=== PATIENT | male | born 1965 | race Caucasian/White ===

== ENCOUNTER 2019-07-20 13:32 | Inpatient (IN) | payer BC ==
[~2019-07-20] VITALS: Ht 180.3 cm; Wt 80.4 kg
--- OUTSIDE RECORDS SUMMARY | 2019-07-20 13:36 | XMS REPORT ---
Author Organization Unknown Address [address] [place] [address] Phone [phone] Care Team Providers Care Field Reimbursement Manager Name Role Phone ROBERT VILLA MD 82 [phone] Allergies Code Code System Name Reaction Severity Status Onset NKDA Medications Name Status Start Date Stop Date albuterol sulfate 2.5 mg/3 mL (0.083 %) solution for nebulization Inhale 3 mL every 4-6 hours by nebulization route as needed for 14 days. Active Not available atenolol 100 mg tablet Take 1 tablet every day by oral route for 30 days. Active Not available Levaquin 500 mg tablet Take 1 tablet every 24 hours by oral route as directed for 10 days. Active Not available lisinopril 20 mg-hydrochlorothiazide 12.5 mg tablet Take 1 tablet every day by oral route for 90 days. Active Not available prednisone 50 mg tablet Take 1 tablet every day by oral route as directed for 5 days. Active Not available ProAir HFA 90 mcg/actuation aerosol inhaler Inhale 2 puffs every 4 hours by inhalation route as needed for 14 days. Active Not available simvastatin 20 mg tablet Take 1 tablet every day by oral route for 90 days. Active Not available Problems Name Status Onset Date Source Hyperlipidemia Active 09/30/2017 Hypertensive Disorder Active 09/30/2017 Procedures Date Name Performed by Other Information not available Lab Results None recorded. Past Encounters 09/30/2017 Acute Bronchitis; Body Mass Index 25-29 - Overweight Jason Colon MD: [id number] [place] [address], Ph. Social History Smoking Status Heavy Tobacco Smoker (1 PPD) Vaccine List Notes: none Plan of Care Reminders Provider Appointments None recorded. Lab None recorded. Referral None recorded. Procedures None recorded. Surgeries None recorded. Imaging None recorded. Vitals Height Weight BMI Blood Pressure 5 ft 8.9 in 195 lbs 28.9 kg/m2 140/90 mm[Hg]
--- OUTSIDE RECORDS SUMMARY | 2019-07-20 13:37 | XMS REPORT | Encounter Summary ---
Author Organization Unknown Address [address] [place] [address] Phone [phone] Care Team Providers Care Governor Assembler Hydraulic Name Role Phone Dr. Jason Hernadez 3 [phone] Jason Aguilar MD 3 [phone] Yasmani Davis MD 82 [phone] Nas Davis MD 114 [phone] Reason for Visit swelling/edema Instructions 1. Edema of lower extremity 2. Acute prostatitis urinalysis, dipstick Cipro 500 mg tablet 3. Painless rectal bleeding gastroenterology referral 4. Chronic obstructive lung disease 5. Hypertensive disorder 6. Overweight 7. Body mass index 25-29 - overweight learning about healthy weight Discussion Note: None recorded. Plan of Care Reminders Provider Appointments None recorded. Lab Urinalysis, Dipstick 07/14/2019 [email or web address] [place] [facility] Referral Gastroenterology Referral 07/14/2019 Procedures None recorded. Surgeries None recorded. Imaging None recorded. Medications Name Start Date albuterol sulfate 2.5 mg/3 mL (0.083 %) solution for nebulization Inhale 3 mL every 6 hours by nebulization route as needed. albuterol sulfate HFA 90 mcg/actuation aerosol inhaler INHALE 2 PUFFS BY MOUTH EVERY 4 HOURS FOR 14 DAYS NEEDED atenolol 100 mg tablet Take 1 tablet every day by oral route for 30 days. Cipro 500 mg tablet Take 1 tablet every 12 hours by oral route for 28 days. lisinopril 20 mg-hydrochlorothiazide 12.5 mg tablet Take 1 tablet every day by oral route for 90 days. simvastatin 20 mg tablet Take 1 tablet every day by oral route for 90 days. tizanidine 4 mg tablet Take 1 tablet every 8 hours by oral route as needed. Medications Administered None recorded. Vitals Height Weight BMI Blood Pressure 5 ft 9 in 196 lbs 28.9 kg/m2 130/75 mm[Hg] Results Lab Results Date Name Specimen Result Interpretation Description Value Range Status Address 07/14/2019 Urinalysis, Dipstick Color Color brandee [facility]: [address], [place] Color Appearance cloudy [facility] [place] [facility]: [address], [place] Color Glucose negative [facility] [place] [facility]: [address], [place] Color Bilirubin small [facility] [place] [facility]: [address], [place] Color Ketones negative [facility] [place] [facility]: [address], [place] Color Specific [place] 1.025 [facility] [place] [facility]: [address], [place] Color Blood large [facility] [place] [facility]: [address] [place] Color PH 5.5 [facility] [place] [facility]: [address], [place] Color Protein 300 [facility] [place] [facility]: [address], [place] Color Urobilinogen 0.2 [facility] [place] [facility]: [address], [place] Color Nitrites negative [facility] [place] [facility]: [address], [place] Color Leukocytes negative [facility]: [address], [place] Allergies Code Code System Name Reaction Severity Status Onset NKDA Problems Name Status Onset Date Source Hyperlipidemia Active 09/30/2017 Hypertensive Disorder Active 09/30/2017 Chronic Obstructive Lung Disease Active Procedures Date Name Performed by Other Information not available Vaccine List Vaccine Type influenza, injectable, quadrivalent 03/21/2017 Social History Tobacco Smoking Status Heavy Tobacco Smoker (1 PPD) Past Encounters 07/14/2019 Edema of Lower Extremity; Acute Prostatitis; Painless Rectal Bleeding; Chronic Obstructive Lung Disease; Hypertensive Disorder; Overweight; Body Mass Index 25- 29 - Overweight Berlin De La Cruz MD: [address], [place] [address], Ph. History of Present Illness Note:1 week with peristent swelling in arms and legs. Arms better today. No assoc pain, numbness in feet only since swelling, no assoc redness or rashes. Review of Systems Comprehensive General Adult ROS Reported By: Patient Constitutional: Constitutional: no significant weight gain Cardiovascular: Cardiovascular: no chest pain, no shortness of breath when walking, no shortness of breath when lying down, no palpitations; No paroxysmal nocturnal dyspnea Respiratory: Respiratory: no shortness of breath Genitourinary: Genitourinary: no hematuria, no increased frequency, urinary loss of control, difficulty urinating; mild dysuria Neurologic: Neurologic: no dizziness, no headaches, weakness Physical Exam General Adult Exam (male) Reported By: Patient Constitutional: Level of Distress: NAD Psychiatric: Mental Status: active and alert Eyes: Pupils: PERRLA. EOM: EOMI Neck: Neck: supple, no masses, FROM. Thyroid: no enlargement, non-tender, no nodules Lungs: Respiratory effort: no dyspnea. Auscultation: no wheezing, no rales/crackles, rhonchi Cardiovascular: Heart Auscultation: RRR, no murmurs. Neck vessels: no carotid bruits, JVD; no HJR. Pulses including femoral / pedal: diminished Abdomen: Bowel Sounds: normal. Inspection and Palpation: soft, no tenderness, no masses, no CVA tenderness. Liver: non-tender, no hepatomegaly. Spleen: non- tender, no splenomegaly Male : Penis: no lesions, no discharge, uncircumcised. Scrotum: no swelling, no tenderness. Testes: palpable bilaterally, not enlarged. Prostate: symmetrical, smooth / no nodules, enlarged, tender, boggy (fluctuant) Musculoskeletal:: Motor Strength and Tone: normal. Joints, Bones, and Muscles: tenderness. Extremities: no cyanosis, edema, palpable cord Neurologic: Cranial Nerves: grossly intact. Sensation: grossly intact
--- OUTSIDE RECORDS SUMMARY | 2019-07-20 13:37 | XMS REPORT | Encounter Summary ---
Author Organization Unknown Address [address] [place] [address] Phone [phone] Care Team Providers Care Acrobatic Dancer Name Role Phone Dr. Jason Hernadez 3 [phone] Jason Aguilar MD 3 [phone] Yasmani Davis MD 82 [phone] Nas Davis MD 114 [phone] Reason for Visit fever; cough / congestion; diarrhea; body aches Instructions 1. Acute bronchitis Depo-Medrol 80 mg/mL suspension for injection ceftriaxone 1 gram solution for injection ciprofloxacin 500 mg tablet Medrol (Tai) 4 mg tablets in a dose pack ProAir HFA 90 mcg/actuation aerosol inhaler Tessalon Perles 100 mg capsule albuterol sulfate 2.5 mg/3 mL (0.083 %) solution for nebulization 2. Body mass index 25-29 - overweight learning about healthy weight 3. Screening for malignant neoplasm of colon colonoscopy referral 4. Vaccine refused by patient 5. Chronic obstructive lung disease Discussion Note: None recorded. Plan of Care Reminders Provider Appointments None recorded. Lab None recorded. Referral Colonoscopy Referral 04/11/2019 Albert Nieto MD Procedures None recorded. Surgeries None recorded. Imaging None recorded. Medications Name Start Date albuterol sulfate 2.5 mg/3 mL (0.083 %) solution for nebulization Inhale 3 mL as needed by nebulization route as needed. atenolol 100 mg tablet Take 1 tablet every day by oral route for 30 days. ceftriaxone 1 gram solution for injection Take 1 g by injection route. ciprofloxacin 500 mg tablet Take 1 tablet every 12 hours by oral route as directed for 10 days. Depo-Medrol 80 mg/mL suspension for injection Take 80 mg by injection route. lisinopril 20 mg-hydrochlorothiazide 12.5 mg tablet Take 1 tablet every day by oral route for 90 days. Medrol (Tai) 4 mg tablets in a dose pack Take 1 dose pk by oral route as directed. ProAir HFA 90 mcg/actuation aerosol inhaler INHALE 2 PUFFS BY MOUTH EVERY 4 HOURS FOR 14 DAYS NEEDED simvastatin 20 mg tablet Take 1 tablet every day by oral route for 90 days. Tessalon Perles 100 mg capsule Take 1 capsule 3 times a day by oral route as needed for 10 days. triamcinolone acetonide 0.5 % topical ointment APPLY A THIN LAYER TO THE AFFECTED AREA(S) BY TOPICAL ROUTE 2 TIMES PER DAY FOR UP TO 2 WEEKS Medications Administered Name Date Depo-Medrol 80 mg/mL suspension for injection Take 80 mg by injection route. 8156-83-82S98:39:00 ceftriaxone 1 gram solution for injection Take 1 g by injection route. 8596-63-98L84:37:00 albuterol sulfate 2.5 mg/3 mL (0.083 %) solution for nebulization Inhale 3 mL as needed by nebulization route as needed. [id number]:40:00 Vitals Height Weight BMI Blood Pressure 5 ft 9 in 194 lbs 28.6 kg/m2 (1) 154/100 mm[Hg] (2) 150/94 mm[Hg] Results Lab Results None recorded. Allergies Code Code System Name Reaction Severity Status Onset NKDA Problems Name Status Onset Date Source Hyperlipidemia Active 09/30/2017 Hypertensive Disorder Active 09/30/2017 Chronic Obstructive Lung Disease Active Procedures Date Name Performed by Other Information not available Vaccine List Vaccine Type influenza, injectable, quadrivalent 03/21/2017 Social History Tobacco Smoking Status Heavy Tobacco Smoker (1/2 PPD) Past Encounters 04/11/2019 Acute Bronchitis; Body Mass Index 25-29 - Overweight; Screening for Malignant Neoplasm of Colon; Vaccine Refused by Patient; Chronic Obstructive Lung Disease Jason Colon MD: [address] [place] [address], Ph. History of Present Illness Note:Pt is complaining of runny nose,nasal congestion, productive cough, wheezing, watery stools and fever not quantified since 2 weeks ago. Denies sore throat, abdominal pain, nausea, sob or chest pain Review of Systems:ROS as noted in the HPI Review of Systems None recorded. Physical Exam General Adult Exam (male) Reported By: Patient Constitutional: General Appearance: overweight. Level of Distress: NAD. Ambulation: ambulating normally Psychiatric: Insight: good judgement. Mental Status: active and alert, normal mood, normal affect. Orientation: to time, to place, to person Eyes: Lids and Conjunctivae: non-injected, no discharge ENMT: Ears: TMs clear. Nose: nasal passages clear, no sinus tenderness, nares non- patent, nasal discharge, post nasal drip. Lips, Teeth, and Gums: no mouth or lip ulcers. Oropharynx: moist mucous membranes, no exudates, erythema Neck: Neck: supple. Lymph Nodes: cervical LAD Lungs: Respiratory effort: no dyspnea. Auscultation: expiratory wheezing, rhonchi Cardiovascular: Heart Auscultation: RRR, normal S1, normal S2, no murmurs Musculoskeletal:: Motor Strength and Tone: normal, normal tone. Extremities: no edema Neurologic: Gait and Station: normal gait
--- OUTSIDE RECORDS SUMMARY | 2019-07-20 13:37 | XMS REPORT | Encounter Summary ---
Author Organization Unknown Address [address] [place] [address] Phone [phone] Care Team Providers Care Audio Video Repairer Name Role Phone Dr. Jason Hernadez 3 [phone] Jason Aguilar MD 3 [phone] Yasmani Davis MD 82 [phone] Nas Davis MD 114 [phone] Reason for Visit congestion; fever Instructions 1. Acute exacerbation of chronic obstructive airways disease Mucinex DM 30 mg-600 mg tablet,extended release 12 hr Tussionex Pennkinetic ER 10 mg-8 mg/5 mL suspension,extended release Depo-Medrol 80 mg/mL suspension for injection Zithromax Z-Tai 250 mg tablet XR, chest, 2 view albuterol sulfate 2.5 mg/3 mL (0.083 %) solution for nebulization 2. Cervical radiculopathy Zanaflex 4 mg tablet Medrol (Tai) 4 mg tablets in a dose pack 3. Upper respiratory infection 4. Pharyngitis 5. Headache 6. Fatigue 7. Chest pain 8. Hypertensive disorder 9. Neck pain 10. Nicotine dependence with current use Discussion Note: None recorded. Patient educational handouts: No information available. Plan of Care Reminders Provider Appointments None recorded. Lab None recorded. Referral None recorded. Procedures None recorded. Surgeries None recorded. Imaging XR, Chest, 2 View 06/08/2019 [facility] Radiology [place] Medications Name Start Date albuterol sulfate 2.5 mg/3 mL (0.083 %) solution for nebulization Inhale 3 mL as needed by nebulization route as needed. albuterol sulfate HFA 90 mcg/actuation aerosol inhaler INHALE 2 PUFFS BY MOUTH EVERY 4 HOURS FOR 14 DAYS NEEDED atenolol 100 mg tablet Take 1 tablet every day by oral route for 30 days. Depo-Medrol 80 mg/mL suspension for injection Take 40 mg by injection route. lisinopril 20 mg-hydrochlorothiazide 12.5 mg tablet Take 1 tablet every day by oral route for 90 days. Medrol (Tai) 4 mg tablets in a dose pack Take 1 dose pk by oral route as directed. Mucinex DM 30 mg-600 mg tablet,extended release 12 hr Take 1 tablet every 12 hours by oral route as needed. simvastatin 20 mg tablet Take 1 tablet every day by oral route for 90 days. Tussionex Pennkinetic ER 10 mg-8 mg/5 mL suspension,extended release Take 5 mL every 12 hours by oral route. Zanaflex 4 mg tablet Take 1 tablet every 8 hours by oral route as needed. Zithromax Z-Tai 250 mg tablet TAKE 2 TABLETS (500 MG) BY ORAL ROUTE ONCE DAILY FOR 1 DAY THEN 1 TABLET (250 MG) BY ORAL ROUTE ONCE DAILY FOR 4 DAYS Medications Administered Name Date Depo-Medrol 80 mg/mL suspension for injection Take 40 mg by injection route. [id number]:42:00 Vitals Height Weight BMI Blood Pressure 5 ft 9 in 186.8 lbs 27.6 kg/m2 (1) 161/100 mm[Hg] (2) 157/94 mm[Hg] Results Lab Results None recorded. Allergies Code Code System Name Reaction Severity Status Onset NKDA Problems Name Status Onset Date Source Hyperlipidemia Active 09/30/2017 Hypertensive Disorder Active 09/30/2017 Chronic Obstructive Lung Disease Active Procedures Date Name Performed by Other Information not available 06/08/2019 XR, Chest, 2 [facility] Radiology [place] [address] [place], [place] [id number] (Work Place) Vaccine List Vaccine Type influenza, injectable, quadrivalent 03/21/2017 Social History Tobacco Smoking Status Heavy Tobacco Smoker (1 PPD) Past Encounters 06/08/2019 Acute Exacerbation of Chronic Obstructive Airways Disease; Cervical Radiculopathy; Upper Respiratory Infection; Pharyngitis; Headache; Fatigue; Chest Pain; Hypertensive Disorder; Neck Pain; Nicotine Dependence with Current Use Berlin De La Cruz MD: [address], [place] [address], Ph. History of Present Illness Cough Reported By: Patient HPI: Quality: ; chest congestion with clear white and yellow phlegm. Duration: ; 4 weeks. Context: smoker. Modifying Factors: ; nothing tried. Associated Symptoms: fever, chills, chest pain, wheezing; SOB with cough and movement, nasal and sinus congestion, clear RN and PN, no ST or EA, Occ pounding SESAY, energy and appetite decreased Note:Sees Cards for HTN. Denies CAD/VA or arrhythmia Review of Systems Comprehensive General Adult ROS Reported By: Patient Cardiovascular: Cardiovascular: no arm pain on exertion, shortness of breath when walking, shortness of breath when lying down; Paroxysmal nocturnal dyspnea - old and unchanged Musculoskeletal: Musculoskeletal: muscle weakness; left posterior neck pain for 2 weeks Neurologic: Neurologic: numbness Physical Exam Upper Respiratory Infection Exam Comprehensive Reported By: Patient Constitutional: General Appearance ill-appearing Head: Sinuses no tenderness Eyes: Pupils injection of the conjunctiva Ears: Right External auditory canal normal appearance. Left External auditory canal normal appearance. Right Tympanic membrane pearly paulino, landmarks clear. Left Tympanic membrane: pearly paulino, landmarks clear Nose: Nasal Mucosa hypertrophy, irritated mucosa Oral Cavity/Mouth: Oral Mucosa: normal. Tonsils: normal tonsils. Posterior pharynx: erythema Lymph Nodes: Cervical no posterior cervical adenopathy, no anterior cervical adenopathy Lungs: Respiratory effort unlabored. Auscultation no rales / crackles, no rhonchi, decreased breath sounds,diffusely, wheezing expiratory diffusely, wheezing inspiratory diffusely Cardiovascular System: Auscultation regular rate and rhythm, no murmur; no JVD. Observation/Palpation of peripheral vascular system no edema
[2019-07-20 15:00] VITALS: BP 94/64
--- NOTE | 2019-07-20 15:00 | NUR ---
PATIENT IS A DIRECT ADMIT. ARRIVED TO THE FLOOR VIA WHEEL CHAIR. ALERT AND VERBALLY RESPONSIVE. SKIN WARM AND DRY TO TOUCH, RESPIRATION EVEN AND UNLABORED. ABDOMEN SOFT, LARGE AND ROUND WITH POSITIVE BS X 4 QUADS. DENIED PAIN AT THIS TIME. TELEMETRY BOX APPLIED. ORIENTED TO SURROUNDING. BED IN LOWER POSITION, CALL LIGHT AT REACH, INSTRUCTED TO CALL FOR ASSISTANCE NEEDED. DR WELLS TAX PREPARER AT BED SIDE AT THIS TIME.
[2019-07-20 15:25] VITALS: BP 94/64
[2019-07-20] MEDS ORDERED: ONDANSETRON HCL INJ 2MG/ML 2ML 2 MG/ML VIAL IV PRN ×2 (16:00→19:30)
--- NOTE | 2019-07-20 16:05 | NUR ---
PATIENT NOTED WITH B/P OF 94/64 AND A HR OF 47. PATIENT HAS AN ORDER FOR LASIX 60MG IV. MD NOTIFIED, ORDER RECEIVED TO GIVE LASIX ORDERED.
[2019-07-20 16:08] LABS: BASOPHILS # (AUTO) 0.1 (0.0-0.1); EOSINOPHILS # (AUTO) 0.3 (0.0-0.4); EOSINOPHILS % 2.7 % (0.0-6.0); HEMATOCRIT 29.2 % (38.2-49.6); HEMOGLOBIN 8.8 g/dL (14.0-18.0); LYMPHOCYTES # (AUTO) 1.5 (1.0-3.2); LYMPHOCYTES % 14.1 % (18.0-39.1); MEAN CORPUSCULAR HEMOGLOBIN 28.3 pg (28-32); MEAN CORPUSCULAR HGB CONC 30.1 g/dL (31-35); MEAN CORPUSCULAR VOLUME 93.9 fL (81-99); MONOCYTES # (AUTO) 0.6 (0.2-0.8); MONOCYTES % 5.9 % (4.4-11.3); NEUTROPHILS # (AUTO) 7.8 (2.1-6.9); NEUTROPHILS % 74.1 % (38.7-80.0); PLATELET COUNT 189 x10e3/uL (140-360); RED BLOOD COUNT 3.11 x10e6/uL (4.3-5.7); RED CELL DISTRIBUTION WIDTH 14.7 % (11.7-14.4)
[2019-07-20] MEDS: FUROSEMIDE INJ 10 MG/ML 4 ML VIAL IV SCH ×2 (16:10→21:21)
[2019-07-20 16:29] LABS: ALBUMIN 2.4 g/dL (3.5-5.0); ALBUMIN/GLOBULIN RATIO 0.7 (0.8-2.0); ANION GAP 26.2 mmol/L (8-16); CALCIUM 7.4 mg/dL (8.4-10.2); CHOL/HDL RATIO 4.8 (3.9-4.7); CREATININE, SERUM 12.5 mg/dL (0.72-1.25); MAGNESIUM 2.9 MG/DL (1.3-2.1); PHOSPHORUS 20.2 MG/DL (2.3-4.7); POTASSIUM 5.2 mmol/L (3.5-5.1)
[2019-07-20 16:40] LABS: B-TYPE NATRIURETIC PEPTIDE2 2730.6 pg/mL (0-100)
[2019-07-20 16:50] LABS: THYROID STIMULATING HORMONE 2.497 uIU/mL (0.350-4.940)
[2019-07-20] MEDS: FAMOTIDINE 20 MG TAB PO SCH (17:00)
[2019-07-20] MEDS ORDERED: POTASSIUM CHLORIDE 20 MEQ TAB CR PO SCH (17:00)
--- NOTE | 2019-07-20 17:28 | NUR ---
PATIENT OFF UNIT TO RADIOLOGY.
--- NOTE | 2019-07-20 17:55 | Diagnostic Imaging Report ---
EXAMINATION: CHEST 2 VIEWS INDICATION: Diastolic heart failure COMPARISON: None FINDINGS: LINES/TUBES:EKG leads overlie the chest. LUNGS:The lungs are hyperinflated. Bilateral emphysematous changes. There is left basilar opacity silhouetting the left vaughn diaphragm. PLEURA:Trace left pleural effusion. MEDIASTINUM:Cardiomegaly. Atherosclerotic calcifications of the thoracic aorta. BONES/SOFT TISSUES:No acute osseous injury. ABDOMEN:No free air under the diaphragm. IMPRESSION: Hyperinflated lungs with emphysematous changes. Cardiomegaly. Trace left pleural effusion. Left basilar opacity, more likely subsegmental atelectasis than superimposed aspiration or pneumonia. Signed by: Jus Rivera MD on 07/20/2019 5:52 PM
--- NOTE | 2019-07-20 19:15 | NUR ---
patient received sleeping but easily awakened. no c/o pain noted. respirations even and unlabored. 02/2l/nc in use. pm assessment complete. son noted at the bedside. plan of care reviewed with son. son verbalizes understanding of this. call davidson placed within patients reach and bed alarm remains on for safety.
[2019-07-20] MEDS ORDERED: HYDRALAZINE HCL 20 MG/ML VIAL IV PRN (19:30)
[2019-07-20] MEDS ORDERED: ACETAMINOPHEN 325 MG TAB PO PRN (19:30)
[2019-07-20 19:59] VITALS: BP 115/53
[2019-07-20 20:00] VITALS: BP 115/53
[2019-07-20] MEDS ORDERED: HYDROCHLOROTH12.5 MG PO (21:10)
[2019-07-20] MEDS ORDERED: SIMVASTATIN20 MG PO (21:10)
[2019-07-20] MEDS ORDERED: ATENOLOL50 MG PO (21:10)
[2019-07-20] MEDS ORDERED: LISINOPRIL10 MG PO (21:34)
[2019-07-21] VITALS (8 sets, daily range): BP systolic 86–152; BP diastolic 47–101
[2019-07-21] MEDS: ALBUTEROL/IPRATROPIUM 3 ML NEB NEB SCH ×4 (01:46→19:45)
--- NOTE | 2019-07-21 02:40 | NUR ---
AM labs drawn at this time.
[2019-07-21 02:45] LABS: BASOPHILS # (AUTO) 0.1 (0.0-0.1); BASOPHILS % 1.1 % (0.0-1.0); EOSINOPHILS # (AUTO) 0.4 (0.0-0.4); EOSINOPHILS % 4.2 % (0.0-6.0); HEMATOCRIT 27.1 % (38.2-49.6); HEMOGLOBIN 8.5 g/dL (14.0-18.0); LYMPHOCYTES # (AUTO) 1.7 (1.0-3.2); LYMPHOCYTES % 16.9 % (18.0-39.1); MEAN CORPUSCULAR HEMOGLOBIN 29.1 pg (28-32); MEAN CORPUSCULAR HGB CONC 31.4 g/dL (31-35); MEAN CORPUSCULAR VOLUME 92.8 fL (81-99); MONOCYTES # (AUTO) 0.7 (0.2-0.8); MONOCYTES % 6.7 % (4.4-11.3); NEUTROPHILS # (AUTO) 7.1 (2.1-6.9); NEUTROPHILS % 69.3 % (38.7-80.0); PLATELET COUNT 168 x10e3/uL (140-360); RED BLOOD COUNT 2.92 x10e6/uL (4.3-5.7); RED CELL DISTRIBUTION WIDTH 14.8 % (11.7-14.4)
[2019-07-21 03:12] LABS: ANION GAP 27.2 mmol/L (8-16); CREATININE, SERUM 12.3 mg/dL (0.72-1.25)
[2019-07-21 03:18] LABS: POTASSIUM 6.2 mmol/L (3.5-5.1)
--- NOTE | 2019-07-21 04:00 | NUR ---
K+ 6.2 DAKOTAH Dawkins notified at this time. no orders received. she instructed me to call renal on consult.
--- NOTE | 2019-07-21 04:07 | NUR ---
attempted to call Dr. Thomas re: K+ 6.2 message left at this time. awaiting return call.
[2019-07-21] MEDS ORDERED: DEXTROSE 50% SYRINGE 50 ML IV STA (04:31)
[2019-07-21] MEDS ORDERED: SODIUM BICARBONATE 8.4% 50 ML VIAL IV STA (04:31)
--- NOTE | 2019-07-21 04:40 | NUR ---
Call received from at this time. New orders noted.
[2019-07-21] MEDS ORDERED: INSULIN REGULAR, HUMAN 100 UNIT/1 ML 3ML VIAL IV ONE (04:45)
[2019-07-21] MEDS ORDERED: SOD POLYSTYRENE SULFONATE SUSP 15 GM/60 ML BTL PO ONE (04:45)
[2019-07-21] MEDS ORDERED: CALCIUM GLUCONATE 10% INJ 4.65 MEQ in SODIUM CHLORIDE 0.9% 50ML 50 ML IV ONE (04:45)
--- NOTE | 2019-07-21 04:45 | NUR ---
bladder scanned at this time and shows 121cc of urine in bladder at this time.
--- NOTE | 2019-07-21 05:00 | NUR ---
all medications ordered this am by given.
[2019-07-21] MEDS ORDERED: SODIUM BICARBONATE 8.4% SYRING 50 ML ONE (05:10)
[2019-07-21] MEDS ORDERED: CALCIUM GLUCONATE 10% INJ 0.465 MEQ/ML VIAL ONE (05:10)
[2019-07-21] MEDS ORDERED: SODIUM CHLORIDE 0.9% 50ML 50 ML ONE (05:11)
[2019-07-21] MEDS: FUROSEMIDE INJ 10 MG/ML 4 ML VIAL IV SCH ×3 (05:25→21:49)
--- NOTE | 2019-07-21 06:00 | NUR ---
here to see patient. new orders noted. 24 hr urine collection also d/c'd per Dr. Pineda
--- NOTE | 2019-07-21 06:34 | NUR ---
[facility] dialysis notified of need for hemodialysis today. i spoke to
--- NOTE | 2019-07-21 07:20 | NUR ---
PATIENT SITTING UP IN BED RECEIVING NEB TREATMENT, NO DISTRESS NOTED. BED IN LOWER POSITION, CALL LIGHT AT REACH.
[2019-07-21] MEDS ORDERED: FAMOTIDINE 20 MG TAB PO SCH (07:30)
[2019-07-21] MEDS: FAMOTIDINE 20 MG TAB PO SCH ×2 (07:30→16:30)
[2019-07-21 07:43] LABS: INR 1.06
[2019-07-21 07:44] LABS: PARTIAL THROMBOPLASTIN TIME 43.7 seconds (23.8-35.5)
--- NOTE | 2019-07-21 08:00 | NUR ---
CALLED TO NOTIFY NURSE NEED FOR HEB B AND C SCREEN LABS TO PROCESS THE DIALYSIS REFERRAL TO [facility]
[2019-07-21] MEDS ORDERED: SODIUM CHLORIDE 0.9% 250ML 250 ML ONE (09:51)
[2019-07-21] MEDS ORDERED: LIDOCAINE HCL 1% LOCAL INJ 20 ML VIAL ONE ×2 (09:51→12:48)
--- NOTE | 2019-07-21 10:02 | NUR ---
SIGNED CHOICE FOR [facility] COPIES OF CHART, NO DIALYSIS NOTE OF YET, NEED MORE REPORTS TO [facility] TO COMPLETE PACKET TO START REFERRAL. WILL SEND WHAT I HAVE AT END OF DAY.
--- NOTE | 2019-07-21 12:13 | Consultation ---
DATE OF CONSULTATION: 07/21/2019 Renal Consultation REASON FOR CONSULTATION: Acute renal failure, hyperkalemia and metabolic acidosis. HISTORY OF PRESENT ILLNESS: A 53-year-old male with history of hypertension and congestive heart failure was admitted directly from Dr. Davis's office for 1 year of fatigue and shortness of breath. The patient is a poor historian and history is taken from him as well as medical record. 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 He became short of breath, developed swelling. He has noticed loss of appetite as well as some intermittent nausea and some confusion. The patient was admitted directly from Dr. Davis's office for congestive heart failure diastolic as well as fatigue and the patient's labs revealed acute kidney injury with metabolic acidosis. This morning the patient developed hyperkalemia and Nephrology consultation was called. The patient denies having any history of kidney disease in the past. Denies taking any eehq-wvl-[id number] medications. REVIEW OF SYSTEMS: 14-point review of systems completed. All systems negative other than mentioned in the HPI. PAST MEDICAL HISTORY: 1. Hepatitis in the past. 2. Hypertension. 3. Congestive heart failure. 4. Coronary artery disease. PAST SURGICAL HISTORY: Bilateral inguinal hernia repair. SOCIAL HISTORY: History of tobacco, history of alcohol. No IV drugs. FAMILY HISTORY: Positive for hypertension. ALLERGIES: NO KNOWN DRUG ALLERGIES. CURRENT MEDICATIONS: See list includes potassium chloride and Lasix. PHYSICAL EXAMINATION: VITAL SIGNS: Blood pressure 86/48 to 112/56, pulse 50, temperature 97, respiratory rate 18. GENERAL: No apparent distress, ill appearing. HEENT: Oropharynx clear. No scleral icterus. No peripheral edema. NECK: Supple. Elevated jugular venous pressure. CHEST: Clear to auscultation anteriorly bilaterally with decreased breath sounds at bases. CARDIOVASCULAR: Regular rhythm. No murmurs or rubs. ABDOMEN: Soft. Positive bowel sounds. No tenderness. No rebound. EXTREMITIES: 2+ pitting edema. No clubbing, no cyanosis. SKIN: Warm. IMAGING DATA: Chest x-ray, trace pleural effusions with cardiomegaly. LABORATORY DATA: White count 10.2, hemoglobin 8.5, hematocrit 27.1, platelets 168. Sodium 142, potassium 6.2, chloride 109, CO2 12, anion gap 27, BUN 120, creatinine 12.3, calcium 7. BNP 2730. Albumin 2.4. ASSESSMENT AND PLAN: 1. Acute kidney injury unclear etiology. The patient however with hyperkalemia, metabolic acidosis, volume overload, and uremia. We will get temporary dialysis catheter and do emergent dialysis this morning. Meanwhile, we will place Basilio catheter, get renal ultrasound, check urine studies and discontinue potassium chloride. 2. Hyperkalemia. We will discontinue potassium chloride as above. The patient receives medical treatment and will have emergent dialysis. 3. Volume overload. We will ultrafiltrate with dialysis. Continue current IV dose of Lasix. 4. Anemia. May have underlying chronic kidney disease as the patient has been having symptoms for approximately 1 year. We will check iron stores. Await renal ultrasound. 5. Hypertension. Blood pressure currently on the low side. Hold blood pressure medications. 6. Metabolic acidosis. We will correct with hemodialysis. MD CODIE Rocha/SAM /[id number]
--- NOTE | 2019-07-21 12:40 | Diagnostic Imaging Report ---
Renal ultrasound, 07/21/2019. History: ISABELA. Discussion: Transverse and longitudinal images of the kidneys were obtained demonstrating normal renal sizes but mildly increased cortical echogenicities. There is no evidence of hydronephrosis, mass, or renal calculus. The right kidney measures 11.4 cm and the left kidney measures 12.0 cm in length. Renal cortex measures 1.4 and 2.1 cm respectively. The urinary bladder is unremarkable. Bilateral ureteral jets are identified. Bladder volume measures 61 mL. There is no evidence of free fluid. IMPRESSION: Mildly increased renal cortical echogenicity suggestive of medical renal disease. Otherwise unremarkable exam. Signed by: Monroe Huerta on 07/21/2019 12:37 PM
[2019-07-21] MEDS ORDERED: HEPARIN SOD (PORCINE) 1000 UNIT/ML SDV ONE (12:48)
[2019-07-21] MEDS ORDERED: MIDAZOLAM HCL 2 MG/2 ML VIAL ONE (12:48)
[2019-07-21] MEDS ORDERED: FENTANYL CITRATE/PF 100MCG/2 ML INJ ONE (12:49)
--- NOTE | 2019-07-21 12:50 | NUR ---
PATIENT OFF UNIT TO RADIOLOGY.
--- NOTE | 2019-07-21 14:01 | NUR ---
PATIENT BACK TO UNIT FROM RADIOLOGY. HAD A IJ TUNNELLED CATHETER TO RIGHT UPPER CHEST. DENIED PAIN AT THIS TIME. IN BED RESTING WITH NO S/S OF DISTRESS.
[2019-07-21] MEDS ORDERED: SODIUM CHLORIDE 0.9% 1000ML 1,000 ML ONE (16:24)
--- NOTE | 2019-07-21 16:50 | Consultation ---
DATE OF CONSULTATION: 07/21/2019 Cardiology Consult HISTORY OF PRESENT ILLNESS: Mr. Pantera Tiwari is a 53-year-old male with primary history of hypertension, COPD, hyperlipidemia, admitted complaining of worsening shortness of breath and lower extremity edema. The patient also reports he fell about 1-1/2 months ago and also started to notice his lower extremity swelling and having dyspnea on exertion. The patient also reports abdominal pain, nausea, and also having chills and generalized weakness. He also reports dark-colored urine and stool. MEDICAL HISTORY: Hypertension, COPD, hyperlipidemia. SURGICAL HISTORY: Hernia repair. FAMILY HISTORY: Parents . Mom and dad of CVA. SOCIAL HISTORY: Active smoker one pack per day and alcohol use once a day, a glass of vodka. ALLERGIES: NO KNOWN ALLERGIES. MEDICATIONS: Home medications, atenolol, hydrochlorothiazide, lisinopril, and simvastatin. PHYSICAL EXAMINATION: VITAL SIGNS: Include temperature 96.1, heart rate of 54 and sinus bradycardia, respiratory rate of 19, blood pressure is 138/101, 100% on 2 L per nasal cannula. GENERAL: The patient is well developed, well nourished, in mild respiratory distress or shortness of breath. SKIN: Normal in appearance, texture, and temperature. Warm and dry. HEENT: Cranium is normocephalic, atraumatic. Pupils are equally round and reactive to light and accommodation. Sclerae nonicteric. Ears are normal. Throat is clear. Full range of motion. No thyromegaly. JVP measures about 9 cm with the patient at 45 degrees. RESPIRATORY: The patient is short of breath. LUNGS: Diminished breath sounds throughout lung melgar with rhonchi and wheezing and rales in all four lobes. CARDIOVASCULAR: S1 and S2 audible with regular rate, but bradycardic. No significant murmur. GASTROINTESTINAL: Soft, nontender, nondistended. Bowel sounds are present. EXTREMITIES: +4 edema. Pulses are weaker on the posterior tibial. NEUROLOGIC: Motor and sensory examination of the upper and lower extremities is normal. Reflexes are normal and symmetrical bilaterally. IMPRESSION AND PLAN: This is a 53-year-old with new onset bilateral lower extremity edema and dyspnea. Echocardiogram shows EF of 55% to 60%, and creatinine is 12.5 and albumin is 2.4. IMPRESSION: Nephrotic syndrome/renal. PLAN: 1. IV diuresis. 2. Renal is consulted for possible hemodialysis and 24-hour urine collection. 3. Monitor in telemetry. Monitor intake and output, electrolyte imbalance. Thank you for this consultation. We will continue to follow. Dictated by Trina Lowry NP MD JAYNA Alonzo/SAM /[id number]
--- NOTE | 2019-07-21 16:51 | Diagnostic Imaging Report ---
Tunneled dialysis catheter placement, 07/21/2019. History: Renal failure. Comparison: None available. Strategic Partner Development Manager: Dr. Huerta. Medication: 5 cc of 1% lidocaine without epinephrine. Medication: 25 mcg fentanyl IV for pain control. EBL: < 2 cc. Fluoro time: 0.4 min. Fluoroscopy dose (DAP): 6.4 cGy-cm2. Specimen: None. Technique: After informed consent and timeout procedure, the access site was prepped and draped with the standard maximal sterile barrier technique. Ultrasound images demonstrated vessel patency. Images were documented within PACS. The skin was anesthetized with lidocaine. The right internal jugular vein was accessed using a micropuncture set with ultrasound guidance. A 0.035-in. wire was advanced through the micropuncture sheath into the vein. The wire was advanced through the atrium into the IVC using fluoroscopic guidance. The right chest was further anesthetized with lidocaine to form the subcutaneous tunnel. The catheter was advanced through the tunnel. The tract was dilated. A peel-away sheath was placed. A 14.5 Amharic 19 cm catheter was placed into the vessel via the peel-away sheath, which was then removed. The catheter was secured with suture. The neck incision was closed with resorbable suture. Both ports demonstrated normal aspiration and flushing. Dressing was applied. The patient tolerated the procedure well without evidence of complication. Postprocedure image demonstrates the catheter to terminate in the superior right atrium. IMPRESSION: Successful tunneled dialysis catheter placement with ultrasound and fluoroscopic guidance guidance. Catheter is ready for immediate use. Signed by: Monroe Huerta on 07/21/2019 4:48 PM
[2019-07-21] MEDS ORDERED: MANNITOL 25% 12.5GM/50ML 100 ML ONE (17:21)
--- NOTE | 2019-07-21 17:23 | NUR ---
FAMILY MEMBER COMPLAINING THAT PATIENT.S FACE IS SWELLING. UPON ASSESSMENT REDNESS NOTED AROUND TO CATHETER, NECK AND FACE. CALL PLACE TO RADIOLOGY DEPARTMENT. RADIOLOGY STAFF STATED THAT THE MD IS IN ANOTHER PROCEDURE AND WILL COME AND SEE THE PATIENT AFTER THAT. FAMILY NOTIFIED.
[2019-07-21] MEDS ORDERED: MANNITOL 25% 12.5GM/50ML 50 ML ONE (17:33)
--- NOTE | 2019-07-21 17:48 | NUR ---
Nutrition Intervention Note RD Recommendation(s) for Physician: -Recommend to continue renal diet -Nepro daily for added nutrition Plan of Care: RD following, monitoring for tolerance and adequacy Nutrition reason for involvement: Diagnosis - CHF RD Assessment (07/21/19) Pt is a 53 year old male admitted with acute diastolic heart failure. It is also noted that pt has acute renal failure and is going to receive temporary dialysis. Mainly spoke to family members at bedside since pt was drowsy at time of visit. Pt was eating < 50% of meals for 1 month per family members. No weight loss reported and pts usual dry weight is 185 lbs per family member. Pt currently has a weight of 193 lbs. No N/V, but family member reported pt had diarrhea. Family member was interested in providing pt with nutrition supplement daily for added nutrition. Will continue to monitor. Principal Problems/Diagnoses: acute diastolic heart failure PMH: HTN, hepatitis, CHF, CAD GI: soft, nontender abdomen Skin: intact Labs: (07/21/2019) K 6.2, BUN 120, Creat 12.30, Phos 20.2, Ca 7, BNP 2730 Meds: lasix, pepcid, hydralazine Ht: 71 inches Wt: 193 lbs BMI: 26.9 kg/m2 IBW: 172 lbs Malnutrition Evaluation (07/21/2019) The patient does not meet criteria for a specified degree of malnutrition at this time. Will re-evaluate at follow-up as appropriate. Energy intake: <75% of estimated energy requirements for 1 month Weight loss: No weight loss reported Fat loss: unable to evaluate Muscle loss: unable to evaluate Supporting Evidence: Fluid accumulation: +2 pitting edema in extremities per MD note Functional Status: unable to evaluate Nutrition Prescription (Diet Order): renal diet Estimated Nutritional Needs: 9963-7838 calories/day (18-20 kcal/kg CBW) 88-132 g protein/day (1-1.5 g pro/kg CBW) Diet Adequacy: Not meeting calorie needs, Not meeting protein needs Tolerance: Tolerating PO Diet Education Needs Assessment: pt was drowsy at time of visit. Family member was interested in handouts regarding a low sodium/heart healthy diet for the patient. Provided written materials to family member. Family member stated she will read handouts provided at a later time. Encouraged her to contact RD if she has questions. Nutrition Care Level: moderate Nutrition Diagnosis: Inadequate energy intake related to decreased ability to consume sufficient energy secondary to decreased appetite as evidenced by pt eating <50% of meals for 1 month. Goal: Patient will meet 75-100% of estimated needs by follow up Progress: N/A Interventions: -mineral (K/Phos/Na) modified diet, Commercial beverage Monitoring/Evaluation: -Total energy intake, Total protein intake, Modified diet, Liquid supplement, Weight change Signed: Jenifer Gonzales RD, LD
--- NOTE | 2019-07-21 17:48 | NUR ---
MD AT BED SIDE TALKING TO FAMILY MEMBERS. NO MORE COMPLAIN VOICED.
[2019-07-21] MEDS ORDERED: HEPARIN SOD (PORCINE) 1000 UNIT/ML SDV IV PRN (18:00)
[2019-07-21] MEDS ORDERED: SODIUM CHLORIDE 0.9% 1000ML 2,000 ML IV PRN (18:00)
[2019-07-21] MEDS ORDERED: MANNITOL 25% 12.5GM/50 ML VIAL IV PRN (18:00)
--- NOTE | 2019-07-21 19:15 | NUR ---
patient received lethargic, lying quietly in bed. hemodialysis treatment continues at this time. no signs of pain/discomfort noted. /son noted at the bedside. family instructed to call for assistance when needed.
[2019-07-22] VITALS (8 sets, daily range): BP systolic 82–164; BP diastolic 47–89
--- NOTE | 2019-07-22 | NUR ---
patient appears to be resting quietly. respirations even and unlabored. vss. no acute distress noted. patient responsive to name when called. son remains at the bedside.
[2019-07-22] MEDS: ALBUTEROL/IPRATROPIUM 3 ML NEB NEB SCH ×4 (01:05→20:34)
[2019-07-22] MEDS: FUROSEMIDE INJ 10 MG/ML 4 ML VIAL IV SCH ×3 (06:00→21:09)
--- NOTE | 2019-07-22 07:20 | NUR ---
PATIENT IN BED RESTING WITH EYES CLOSED, NO DISTRESS NOTED. RIGHT UPPER CHEST DIALYSIS CATHETER INTACT. BED IN LOWER POSITION, CALL LIGHT AT REACH.
[2019-07-22 07:21] LABS: BASOPHILS # (AUTO) 0.1 (0.0-0.1); BASOPHILS % 1.5 % (0.0-1.0); EOSINOPHILS # (AUTO) 0.3 (0.0-0.4); HEMATOCRIT 25.9 % (38.2-49.6); HEMOGLOBIN 8.1 g/dL (14.0-18.0); LYMPHOCYTES # (AUTO) 1.4 (1.0-3.2); LYMPHOCYTES % 15.7 % (18.0-39.1); MEAN CORPUSCULAR HEMOGLOBIN 28.6 pg (28-32); MEAN CORPUSCULAR HGB CONC 31.3 g/dL (31-35); MEAN CORPUSCULAR VOLUME 91.5 fL (81-99); MONOCYTES # (AUTO) 0.5 (0.2-0.8); NEUTROPHILS # (AUTO) 6.3 (2.1-6.9); NEUTROPHILS % 72.3 % (38.7-80.0); PLATELET COUNT 143 x10e3/uL (140-360); RED BLOOD COUNT 2.83 x10e6/uL (4.3-5.7)
[2019-07-22] MEDS: FAMOTIDINE 20 MG TAB PO SCH ×2 (07:30→16:30)
[2019-07-22 07:38] LABS: ANION GAP 25.6 mmol/L (8-16); CALCIUM 7.4 mg/dL (8.4-10.2); CREATININE, SERUM 10.1 mg/dL (0.72-1.25); MAGNESIUM 2.5 MG/DL (1.3-2.1); PHOSPHORUS 15.9 MG/DL (2.3-4.7); POTASSIUM 4.6 mmol/L (3.5-5.1)
[2019-07-22 07:58] LABS: FERRITIN 272.77 ng/mL (21.81-274.66)
[2019-07-22] MEDS ORDERED: HEPARIN SOD (PORCINE) 1000 UNIT/ML SDV IV PRN (09:00)
--- NOTE | 2019-07-22 11:02 | NUR ---
BED SIDE HEMODIALYSIS TREATMENT IN PROGRESS, NO DISTRESS NOTED.
--- NOTE | 2019-07-22 12:31 | NUR ---
BEDSIDE HEMODIALYSIS COMPLETED. 1.5L OF FLUID REMOVED PER DIALYSIS NURSE. B/P 116/62 HR 109
--- NOTE | 2019-07-22 14:26 | NUR ---
no tx due to HD today, f/u on wednesday Addendum: 07/22/19 at 1427 by Kal Mendez PTA Amended: Links added.
[2019-07-22] MEDS ORDERED: EPOETIN ALFA-EPBX 10,000 UNIT/ML VIAL SC SCH (14:45)
--- NOTE | 2019-07-22 19:15 | NUR ---
patient received awake, alert, but confused. sitting up in bed. patient unable to tell me his name or where he is. patient is able recognize his at the bedside. vss. pm assessment complete. side rails up x 3. bed alarm remains on for safety. family noted at the bedside. family instructed to call for assistance when needed.
[2019-07-23] VITALS (7 sets, daily range): BP systolic 121–145; BP diastolic 67–90
[2019-07-23] MEDS: ALBUTEROL/IPRATROPIUM 3 ML NEB NEB SCH ×4 (00:11→19:50)
--- NOTE | 2019-07-23 00:30 | NUR ---
here to see patient. patients severe confusion reported to at this time. orders received for stat abgs, labs and ct brain without contrast. abgs and ct to be called to when complete.
[2019-07-23 01:06] LABS: BASOPHILS # (AUTO) 0.1 (0.0-0.1); BASOPHILS % 1.2 % (0.0-1.0); EOSINOPHILS # (AUTO) 0.2 (0.0-0.4); EOSINOPHILS % 1.8 % (0.0-6.0); HEMATOCRIT 26.4 % (38.2-49.6); HEMOGLOBIN 8.3 g/dL (14.0-18.0); LYMPHOCYTES # (AUTO) 1.3 (1.0-3.2); LYMPHOCYTES % 14.5 % (18.0-39.1); MEAN CORPUSCULAR HEMOGLOBIN 27.9 pg (28-32); MEAN CORPUSCULAR HGB CONC 31.4 g/dL (31-35); MEAN CORPUSCULAR VOLUME 88.9 fL (81-99); MONOCYTES # (AUTO) 0.6 (0.2-0.8); MONOCYTES % 6.3 % (4.4-11.3); NEUTROPHILS # (AUTO) 6.9 (2.1-6.9); NEUTROPHILS % 75.1 % (38.7-80.0); PLATELET COUNT 162 x10e3/uL (140-360); RED BLOOD COUNT 2.97 x10e6/uL (4.3-5.7); RED CELL DISTRIBUTION WIDTH 14.5 % (11.7-14.4)
[2019-07-23 01:31] LABS: ANION GAP 21.6 mmol/L (8-16); CALCIUM 7.7 mg/dL (8.4-10.2); CREATININE, SERUM 7.05 mg/dL (0.72-1.25); MAGNESIUM 2.2 MG/DL (1.3-2.1); POTASSIUM 3.6 mmol/L (3.5-5.1)
--- NOTE | 2019-07-23 02:19 | Diagnostic Imaging Report ---
Examination: CT head without contrast Clinical Indication: Confusion. Technique: Transaxial noncontrast images from the skull base through the vertex were obtained. Sagittal and coronal reformatted images were done. Dose modulation, iterative reconstruction, and/or weight based adjustment of the mA/kV was utilized to reduce the radiation dose to as low as reasonably achievable. Comparison: None. Findings: Scalp: No abnormalities. Bones: Intact. No fractures. No blastic or lytic lesions. Brain sulci: Appropriate for patient's age. Ventricles: Normal in size and configuration. No hydrocephalus. Extra-axial space: No abnormalities. Parenchyma: No masses, hemorrhage, or acute or chronic cortical based vascular insults. Suprasellar region: No abnormalities. Craniocervical junction: The foramen magnum is patent. No Chiari one malformation. Incidental findings: Atherosclerotic calcification of the cavernous and supraclinoid internal carotid and V4 segments of the bilateral vertebral arteries. Impression: No acute intracranial abnormality. Signed by: Dr. Mattie Murphy M.D. on 07/23/2019 2:16 AM
--- NOTE | 2019-07-23 02:30 | NUR ---
ct brain and abgs called to at this time. no new orders received.
[2019-07-23 02:54] LABS: HIV 1&2 AB SCREEN NON-REACTIVE (NONREACTIVE)
[2019-07-23 03:56] LABS: ABG HCO3 21 mmol/L (23-28); ABG PCO2 33 mmHg (41-51); ABG PH 7.41 (7.31-7.41); ABG PO2 73 mmHg (80-105)
[2019-07-23] MEDS: FUROSEMIDE INJ 10 MG/ML 4 ML VIAL IV SCH ×3 (06:00→21:24)
--- NOTE | 2019-07-23 07:05 | NUR ---
Received patient lying in bed with eyes open. Respiration even and unlabored without SOB. Call light in reach.
--- NOTE | 2019-07-23 07:12 | NUR ---
Received patient lying in bed with eyes open, Respiration even and unlabored without SOB. at bedside. Call light in reach
[2019-07-23] MEDS: FAMOTIDINE 20 MG TAB PO SCH ×2 (09:02→14:31)
--- NOTE | 2019-07-23 16:55 | Diagnostic Imaging Report ---
MRI BRAIN WO HISTORY: Confusion COMPARISON: Head CT 07/23/2019 TECHNIQUE: Sagittal T2, axial T2, axial T1, axial T2/FLAIR, axial gradient echo (or susceptibility weighted), coronal T2/FLAIR, and axial diffusion weighted MR images of the brain were obtained without contrast. Motion artifacts obscure some details. DISCUSSION: Scalp/bone marrow: Unremarkable. Brain sulci: Appropriate for patient's age. Ventricles: Normal in size and configuration. No hydrocephalus. Extra-axial spaces: No masses or fluid collections. Parenchyma: A few small T2/FLAIR hyperintense foci throughout the supratentorial white matter and brandt are likely chronic microvascular ischemic changes. Otherwise, no mass, hemorrhage, or acute vascular insults. Vessels: Normal flow voids in major arteries and veins. Sellar/Suprasellar region: No abnormalities. Craniocervical junction: No abnormalities. Incidental findings: Minimal scattered paranasal sinus mucosal thickening. IMPRESSION: Limited exam due to motion artifacts. In spite of limitations: 1. No acute intracranial abnormalities. 2. Minimal supratentorial/pontine chronic microvascular ischemic change. Signed by: Dr. Biju De La Cruz M.D. on 07/23/2019 4:53 PM
--- NOTE | 2019-07-23 19:15 | NUR ---
Report given to fire control technician g. Respiration even and unlabored without SOB. Call light in reach.
[2019-07-23] MEDS: THIAMINE HCL INJ 100 MG/ML 2ML VIAL IV SCH (21:19)
[2019-07-24] VITALS (12 sets, daily range): BP systolic 123–160; BP diastolic 65–100
[2019-07-24] MEDS: ALBUTEROL/IPRATROPIUM 3 ML NEB NEB SCH ×5 (01:05→20:07)
[2019-07-24 04:08] LABS: BASOPHILS # (AUTO) 0.1 (0.0-0.1); BASOPHILS % 0.8 % (0.0-1.0); EOSINOPHILS # (AUTO) 0.2 (0.0-0.4); EOSINOPHILS % 2.3 % (0.0-6.0); HEMATOCRIT 24.4 % (38.2-49.6); HEMOGLOBIN 7.7 g/dL (14.0-18.0); LYMPHOCYTES # (AUTO) 1.1 (1.0-3.2); LYMPHOCYTES % 11.9 % (18.0-39.1); MEAN CORPUSCULAR HEMOGLOBIN 28.4 pg (28-32); MEAN CORPUSCULAR HGB CONC 31.6 g/dL (31-35); MONOCYTES # (AUTO) 0.7 (0.2-0.8); MONOCYTES % 8.1 % (4.4-11.3); NEUTROPHILS # (AUTO) 6.9 (2.1-6.9); NEUTROPHILS % 76.1 % (38.7-80.0); PLATELET COUNT 146 x10e3/uL (140-360); RED BLOOD COUNT 2.71 x10e6/uL (4.3-5.7); RED CELL DISTRIBUTION WIDTH 14.1 % (11.7-14.4)
[2019-07-24 04:22] LABS: ANION GAP 19.9 mmol/L (8-16); CALCIUM 7.6 mg/dL (8.4-10.2); CREATININE, SERUM 7.13 mg/dL (0.72-1.25)
--- NOTE | 2019-07-24 04:25 | Consultation ---
DATE OF CONSULTATION: 07/23/2019 HISTORY OF PRESENT ILLNESS: This is a 53-year-old male, history of hypertension, COPD, hyperlipidemia, admitted with acute renal failure with edema in the lower extremities. He is being treated by Nephrology Service and other services and has been noticed to be more confused and such Neurology evaluation has been initiated. He had MRI of the brain, which does not show acute changes, but shows some chronic changes from his high blood pressure. His basic labs other than the abnormal metabolic changes and the low calcium and the high BUN and creatinine are unremarkable otherwise. Normal vitamin B12 level and TSH. PAST MEDICAL HISTORY: As above. Hypertension, COPD, hyperlipidemia. PAST SURGICAL HISTORY: Hernia repair. FAMILY HISTORY: Noncontributory. SOCIAL HISTORY: Smoker and alcohol once a day. He also uses vodka. ALLERGIES: NO KNOWN DRUG ALLERGIES. MEDICATIONS: Per the chart. REVIEW OF SYSTEMS: A 14 point is negative otherwise. PHYSICAL EXAMINATION: VITAL SIGNS: Temperature 96.1, heart rate 54, respiratory rate 16, pulse rate 54, and blood pressure 138/100. HEAD AND NECK: No meningeal signs. LUNGS: Good air entry. ABDOMEN: Soft. EXTREMITIES: Edema. NEUROLOGIC: Alert. Follows commands. Mild cognitive impairment noted. Speech is not slurred. Otherwise, no lateralized weakness. He has mild asterixis on the right. IMAGING DATA: Echocardiogram reported unremarkable. ASSESSMENT: The patient with mild cognitive impairment, chronically probably related to his alcohol use versus neurodegenerative, which is now complicated by encephalopathy related to the metabolic abnormalities and renal issues he is having plus toxic effect from medications. The abnormal movements and myoclonic jerks periodically he is having are related to metabolic abnormalities, mainly renal and hyperuremia. Recommend his symptoms should improve as his BUN and creatinine are treated as well as metabolic abnormalities are treated. We will check also a magnesium and correct as needed. I will continue to follow. Also, we will start him on thiamine and keep him on that. We will check a thiamine level. We will continue with thiamine 100 mg daily and watch for DTs and keep him on neuro checks. Physical, occupational therapy, and speech therapy initiated as well. Fern Perez MD AM/MODL /[id number]
[2019-07-24 04:28] LABS: POTASSIUM 2.9 mmol/L (3.5-5.1)
[2019-07-24] MEDS ORDERED: POTASSIUM CHLORIDE 20 MEQ TAB CR PO STA (04:47)
--- NOTE | 2019-07-24 05:00 | NUR ---
0427 Lab called and reported potassium level 2.9 7904 Message left for button tufting machine operator Renal MD, awaiting call back. 0447 New orders for potassium chloride 40 mEq po x1, and to draw routine AM labs at normal routine lab time.
[2019-07-24] MEDS: FUROSEMIDE INJ 10 MG/ML 4 ML VIAL IV SCH ×3 (05:52→21:04)
--- NOTE | 2019-07-24 07:25 | NUR ---
PATIENT IN BED RECEIVING NEB TREATMENT, NO DISTRESS NOTED. DENIED PAIN AT THIS TIME. BED IN LOWER POSITION, CALL LIGHT AT REACH.
[2019-07-24] MEDS: FAMOTIDINE 20 MG TAB PO SCH ×2 (08:30→17:24)
--- NOTE | 2019-07-24 11:25 | NUR ---
PATIENT ABOUT TO START BEDSIDE HEMODIALYSIS TREATMENT. IN BED WITH CALL LIGHT AT REACH.
--- NOTE | 2019-07-24 14:47 | NUR ---
BEDSIDE HEMODIALYSIS COMPLETED, 2L REMOVED; B/P 120/81 AND HR 86 PER DIALYSIS NURSE. PATIENT IN BED WITH CALL LIGHT AT REACH.
--- NOTE | 2019-07-24 14:59 | NUR ---
FAXED CLINICALS TO [facility] INTAKE [phone]
[2019-07-24] MEDS ORDERED: ONDANSETRON HCL 4 MG ORAL DISINTEGRATING TAB PO PRN (15:00)
[2019-07-24] MEDS: THIAMINE HCL INJ 100 MG/ML 2ML VIAL IV SCH (20:57)
[2019-07-24] MEDS ORDERED: AMIODARONE HCL 150MG 100 ML IV ONE (23:15)
--- NOTE | 2019-07-24 23:30 | NUR ---
2229 Tele called to report HR in 140's to 160's and patient in AFIB and having AFIB RVR. 2232 97.2, 137/100, 129, 02 sat 87% on RA, 20: 02 applied at 2L NC, 02 sat 96 to 97 % 224 Stat EKG: showing AFIB with RVR [address] Davis Paged regarding new onset afib with RVR, Awaiting call back 2305 Dr Davis retuned call. Notified tele called and HR 115's to 160's, showing AFIB RVR on 12 lead EKG. New orders obtained and to transfer to [facility]. 2310 Updated patient on POC and transfer. 2315 AOS updated on transfer to [facility]. Bed assigned to 197. 2318 Report called to Nurse in [facility]. 2325 Barbi notified of transfer to [facility] bed 197 at [phone]. 2330 Patient moved to [facility] bed 197.
[2019-07-24] MEDS ORDERED: AMIODARONE HCL 900 MG in DEXTROSE 5% 500ML 500 ML IV PRN (23:45)
[2019-07-25] VITALS (9 sets, daily range): BP systolic 122–124; BP diastolic 76–90
[2019-07-25 00:31] LABS: HEMATOCRIT 22.9 % (38.2-49.6); HEMOGLOBIN 7.4 g/dL (14.0-18.0); LYMPHOCYTES % 13.6 % (18.0-39.1); MEAN CORPUSCULAR HEMOGLOBIN 28.7 pg (28-32); MEAN CORPUSCULAR HGB CONC 32.3 g/dL (31-35); MEAN CORPUSCULAR VOLUME 88.8 fL (81-99); MONOCYTES % 7.6 % (4.4-11.3); NEUTROPHILS % 74.4 % (38.7-80.0); PLATELET COUNT 129 x10e3/uL (140-360); RED BLOOD COUNT 2.58 x10e6/uL (4.3-5.7); RED CELL DISTRIBUTION WIDTH 13.8 % (11.7-14.4)
[2019-07-25 00:32] LABS: BASOPHILS # (AUTO) 0.1 (0.0-0.1); BASOPHILS % 0.7 % (0.0-1.0); EOSINOPHILS # (AUTO) 0.3 (0.0-0.4); EOSINOPHILS % 2.9 % (0.0-6.0); LYMPHOCYTES # (AUTO) 1.2 (1.0-3.2); MONOCYTES # (AUTO) 0.7 (0.2-0.8); NEUTROPHILS # (AUTO) 6.6 (2.1-6.9)
[2019-07-25 00:40] LABS: ANION GAP 17.2 mmol/L (8-16); POTASSIUM 3.2 mmol/L (3.5-5.1)
[2019-07-25 00:41] LABS: ALBUMIN 2.2 g/dL (3.5-5.0); ALBUMIN/GLOBULIN RATIO 0.8 (0.8-2.0); CALCIUM 7.7 mg/dL (8.4-10.2); CREATININE, SERUM 4.2 mg/dL (0.72-1.25); PHOSPHORUS 5.5 MG/DL (2.3-4.7)
[2019-07-25] MEDS ORDERED: AMIODARONE HCL 100 ML IV ONE (00:44)
[2019-07-25] MEDS ORDERED: AMIODARONE 900MG 500 ML IV ONE (00:44)
[2019-07-25 00:57] LABS: MAGNESIUM 1.9 MG/DL (1.3-2.1)
[2019-07-25] MEDS: ALBUTEROL/IPRATROPIUM 3 ML NEB NEB SCH ×4 (01:00→19:25)
[2019-07-25] MEDS: FUROSEMIDE INJ 10 MG/ML 4 ML VIAL IV SCH ×2 (05:30→13:16)
[2019-07-25 06:11] LABS: ANION GAP 16.1 mmol/L (8-16); CALCIUM 7.6 mg/dL (8.4-10.2); CREATININE, SERUM 4.84 mg/dL (0.72-1.25); POTASSIUM 3.1 mmol/L (3.5-5.1)
--- NOTE | 2019-07-25 06:28 | NUR ---
Notify DR Davis's answering service of Pt's low potassium of 3.1. Pt stable denies any concerns at this time will continue to monitor
[2019-07-25 07:13] LABS: RED BLOOD COUNT 2.77 x10e6/uL (4.3-5.7)
[2019-07-25 07:14] LABS: BASOPHILS % 0.8 % (0.0-1.0); EOSINOPHILS % 3.3 % (0.0-6.0); HEMOGLOBIN 7.9 g/dL (14.0-18.0); LYMPHOCYTES % 16.5 % (18.0-39.1); MEAN CORPUSCULAR HEMOGLOBIN 28.5 pg (28-32); MEAN CORPUSCULAR HGB CONC 31.6 g/dL (31-35); MEAN CORPUSCULAR VOLUME 90.3 fL (81-99); MONOCYTES % 8.7 % (4.4-11.3); PLATELET COUNT 129 x10e3/uL (140-360); RED CELL DISTRIBUTION WIDTH 13.9 % (11.7-14.4)
--- NOTE | 2019-07-25 07:50 | NUR ---
Pt transferred from [facility] [place] [facility] for higher level of care. Will require new PT orders to resume skilled PT. Thank you. Addendum: 07/25/19 at 0751 by JUDY NOYOLA LEATHER BELT LOOP CUTTER Amended: Links added.
[2019-07-25] MEDS: FAMOTIDINE 20 MG TAB PO SCH ×2 (08:40→17:12)
[2019-07-25] MEDS: AMIODARONE HCL 200 MG TAB PO SCH (08:40)
[2019-07-25] MEDS: APIXAB 2.5 MG TABLET PO SCH ×2 (08:40→17:12)
[2019-07-25 09:05] LABS: BASOPHILS # (AUTO) 0.1 (0.0-0.1); EOSINOPHILS # (AUTO) 0.3 (0.0-0.4); LYMPHOCYTES # (AUTO) 1.5 (1.0-3.2); MONOCYTES # (AUTO) 0.8 (0.2-0.8); NEUTROPHILS # (AUTO) 6.4 (2.1-6.9)
--- NOTE | 2019-07-25 13:08 | Progress Note ---
DATE: 07/24/2019 SUBJECTIVE: The patient is better today. Less confused. He is receiving dialysis and that seems to be helping. MEDICATIONS: Per MAR. PHYSICAL EXAMINATION: VITAL SIGNS: Temperature 98, respiratory rate 16, pulse rate 80, blood pressure 141/67. HEAD AND NECK: No meningeal signs. LUNGS: Good air entry. ABDOMEN: Soft. EXTREMITIES: Edema. NEUROLOGIC: Alert. Follows commands. Minimal executive issues and cognitive impairment. No lateralizing weakness. ASSESSMENT: 1. Mild encephalopathy with myoclonic jerks related to metabolic abnormalities, improving, as the patient is being dialyzed. He could have toxic metabolic as well as medications effect. 2. Renal failure. RECOMMEND: Continue current treatment. We will continue to monitor current metabolic abnormalities. Follow up calcium and magnesium levels and correct as needed. I do not believe he needs any treatment for the myoclonic jerks, as they will improve with dialysis. Fern Perez MD AM/MODKaterin /[id number]
--- NOTE | 2019-07-25 13:16 | NUR ---
pt recvinig dialysis. alert and oriented. per IR, will do biopsy tomorrow morning
--- NOTE | 2019-07-25 14:02 | NUR ---
MDs were aware of pt K labs, dialysis was adjusted
[2019-07-25] MEDS ORDERED: POTASSIUM CHLORIDE 20 MEQ TAB CR PO NR (17:30)
[2019-07-25] MEDS: THIAMINE HCL INJ 100 MG/ML 2ML VIAL IV SCH (20:26)
[2019-07-26] VITALS (9 sets, daily range): BP systolic 116–143; BP diastolic 65–101
[2019-07-26] MEDS: ALBUTEROL/IPRATROPIUM 3 ML NEB NEB SCH ×4 (01:00→19:00)
--- NOTE | 2019-07-26 01:55 | Progress Note ---
DATE: 07/25/2019 SUBJECTIVE: The patient is much better. He is much more oriented, less confusion. MEDICATIONS: Per AUG. PHYSICAL EXAMINATION: VITAL SIGNS: Temperature 98, respiratory rate 16, pulse rate 80, blood pressure 121/67. HEAD AND NECK: No meningeal signs. LUNGS: Good air entry. ABDOMEN: Soft. EXTREMITIES: . NEUROLOGIC: Alert, oriented, follows commands. No asterixis today. No lateralized weakness. . ASSESSMENT: 1. Resolved encephalopathy, probably metabolic. 2. Resolved myoclonic jerking. 3. Renal failure. RECOMMEND: Continue current treatment. Fern Perez MD AM/MODL /[id number]
[2019-07-26 05:25] LABS: BASOPHILS # (AUTO) 0.1 (0.0-0.1); BASOPHILS % 0.5 % (0.0-1.0); EOSINOPHILS # (AUTO) 0.3 (0.0-0.4); EOSINOPHILS % 3.1 % (0.0-6.0); HEMATOCRIT 27.6 % (38.2-49.6); HEMOGLOBIN 8.4 g/dL (14.0-18.0); LYMPHOCYTES # (AUTO) 1.3 (1.0-3.2); LYMPHOCYTES % 12.5 % (18.0-39.1); MEAN CORPUSCULAR HEMOGLOBIN 28.6 pg (28-32); MEAN CORPUSCULAR HGB CONC 30.4 g/dL (31-35); MONOCYTES # (AUTO) 0.6 (0.2-0.8); MONOCYTES % 5.9 % (4.4-11.3); NEUTROPHILS # (AUTO) 7.9 (2.1-6.9); NEUTROPHILS % 77.3 % (38.7-80.0); PLATELET COUNT 122 x10e3/uL (140-360); RED BLOOD COUNT 2.94 x10e6/uL (4.3-5.7); RED CELL DISTRIBUTION WIDTH 13.5 % (11.7-14.4)
[2019-07-26 05:31] LABS: MEAN CORPUSCULAR VOLUME 93.9 fL (81-99)
[2019-07-26 05:39] LABS: ANION GAP 15.9 mmol/L (8-16); CALCIUM 7.9 mg/dL (8.4-10.2); CREATININE, SERUM 3.94 mg/dL (0.72-1.25); POTASSIUM 3.9 mmol/L (3.5-5.1)
[2019-07-26] MEDS: FAMOTIDINE 20 MG TAB PO SCH ×2 (09:16→18:01)
[2019-07-26] MEDS: AMIODARONE HCL 200 MG TAB PO SCH (09:16)
--- NOTE | 2019-07-26 11:55 | NUR ---
Nutrition Intervention Note RD Recommendation(s) for Physician: -Resume renal diet when feasible -Nepro once daily for adequacy Plan of Care: RD following, monitoring for tolerance and adequacy Nutrition reason for involvement: Diagnosis - CHF RD Assessment 07/26: Pt seen for follow up. Pt reports fair appetite and intake since admit 07/23 "food just doesn't have a taste." Pt reports some diarrhea as well. Pt currently NPO for pending renal biopsy. Pt with no questions or concerns at time of visit. Pt discussed during am rounds. Chart reviewed. Will continue to monitor. (07/21/19) Pt is a 53 year old male admitted with acute diastolic heart failure. It is also noted that pt has acute renal failure and is going to receive temporary dialysis. Mainly spoke to family members at bedside since pt was drowsy at time of visit. Pt was eating < 50% of meals for 1 month per family members. No weight loss reported and pts usual dry weight is 185 lbs per family member. Pt currently has a weight of 193 lbs. No N/V, but family member reported pt had diarrhea. Family member was interested in providing pt with nutrition supplement daily for added nutrition. Will continue to monitor. Principal Problems/Diagnoses: acute diastolic heart failure PMH: HTN, hepatitis, CHF, CAD GI: LBM 07/25 Skin: intact Labs: 07/26: Cr 3.94 Meds: pepcid, thiamine, zofran Ht: 71 inches Wt: 193 lbs BMI: 26.9 kg/m2 IBW: 172 lbs Malnutrition Evaluation (07/21/2019) The patient does not meet criteria for a specified degree of malnutrition at this time. Will re-evaluate at follow-up as appropriate. Energy intake: <75% of estimated energy requirements for 1 month Weight loss: No weight loss reported Fat loss: unable to evaluate Muscle loss: unable to evaluate Supporting Evidence: Fluid accumulation: +2 pitting edema in extremities per MD note Functional Status: unable to evaluate Nutrition Prescription (Diet Order): renal diet Estimated Nutritional Needs: 4127-7325 calories/day (18-20 kcal/kg CBW) 88-132 g protein/day (1-1.5 g pro/kg CBW) Diet Adequacy: Not meeting calorie needs, Not meeting protein needs Tolerance: Tolerating PO Diet Education Needs Assessment: pt was drowsy at time of visit. Family member was interested in handouts regarding a low sodium/heart healthy diet for the patient. Provided written materials to family member. Family member stated she will read handouts provided at a later time. Encouraged her to contact RD if she has questions. Nutrition Care Level: moderate Nutrition Diagnosis: Inadequate energy intake related to decreased ability to consume sufficient energy secondary to decreased appetite as evidenced by pt eating <50% of meals for 1 month. Goal: Patient will meet 75-100% of estimated needs by follow up Progress: progressing Interventions: -mineral (K/Phos/Na) modified diet, Commercial beverage Monitoring/Evaluation: -Total energy intake, Total protein intake, Modified diet, Liquid supplement, Weight change Signed: Tara Liang RD, LD, [facility]
--- NOTE | 2019-07-26 13:31 | NUR ---
CALLED CONCERNED BECAUSE THEY LIVE IN [place] AND HE WILL BE DRIVING SELF TO APPOINTMENTS, SHE IS ASKING IF DR STOKES GOES TO WITH OF THOSE CLINICS. ADVISED HE WANTED [facility] [address] [facility]ITAL. WILL SPEAK WITH WHEN ABLE TO SPEAK WITH .
[2019-07-26 13:45] LABS: CLARITY,URINE SL CLOUDY (CLEAR); COLOR,URINE BROWN (YELLOW); LEUKOCYTE ESTERASE ,URINE NEGATIVE (NEGATIVE); NITRITE,URINE NEGATIVE (NEGATIVE); PROTEIN,URINE DIPSTICK 3+ (NEGATIVE)
[2019-07-26 13:46] LABS: BILIRUBIN,URINE LARGE (NEGATIVE); KETONES,URINE NEGATIVE (NEGATIVE); URINE UROBILINOGEN 0.2 mg/dL (0.2 - 1)
[2019-07-26 13:54] LABS: BACTERIA,URINE MANY /HPF; EPITHELIAL CELLS,URINE RARE /LPF; RBC,URINE >50 /HPF (0-5); WBC,URINE (MAN) 0-5 /HPF (0-5)
--- NOTE | 2019-07-26 15:35 | NUR ---
Discontinuing skilled PT services since patient is modified independent in functional mobility. Thank you. Addendum: 07/26/19 at 1536 by Xavier xiao PT Amended: Links added.
--- NOTE | 2019-07-26 19:58 | NUR ---
patient in bed, awake alert oriented, on bed side. he signed informed consent for procedure in the morning. vitals checked, he is ready for taking shower as he requested. will help and stand by in the bathroom. will continue to monitor.
[2019-07-26] MEDS: THIAMINE HCL INJ 100 MG/ML 2ML VIAL IV SCH (21:04)
--- NOTE | 2019-07-26 22:55 | NUR ---
patient had a snacks, he is aware that he will be NPO after midnight, vitals stable, no acute distress noted, call light within reach, will continue to monitor.
--- NOTE | 2019-07-26 23:57 | Progress Note ---
DATE: 07/26/2019 SUBJECTIVE: The patient is much better. Discussed today with Nephrology and nursing staff. The patient complaining of right hearing difficulty. He said he has had it before, but it got worse. MEDICATIONS: Per AUG. OBJECTIVE: VITAL SIGNS: Temperature 98, respiratory rate is 17, pulse rate 82, blood pressure 137/87. HEAD AND NECK: No meningeal signs. LUNGS: Good air entry. ABDOMEN: Soft. EXTREMITIES: Good pulses. NEUROLOGIC: Alert. Follows commands. No myoclonic jerks. No lateralized weakness. Difficulty with hearing. ASSESSMENT: 1. Resolved encephalopathy and myoclonic jerking, metabolic. 2. Renal failure. 3. Hearing difficulty on the right ear. RECOMMENDATIONS: The patient might benefit from ENT evaluation. Fern Perez MD AM/SAM /[id number]
[2019-07-27] MEDS: ALBUTEROL/IPRATROPIUM 3 ML NEB NEB SCH ×4 (01:00→19:38)
[2019-07-27 04:03] VITALS: BP 136/69
[2019-07-27 05:45] LABS: BASOPHILS # (AUTO) 0.1 (0.0-0.1); BASOPHILS % 0.6 % (0.0-1.0); EOSINOPHILS # (AUTO) 0.4 (0.0-0.4); EOSINOPHILS % 5.2 % (0.0-6.0); HEMATOCRIT 24.3 % (38.2-49.6); HEMOGLOBIN 7.4 g/dL (14.0-18.0); LYMPHOCYTES # (AUTO) 1.2 (1.0-3.2); LYMPHOCYTES % 15.2 % (18.0-39.1); MEAN CORPUSCULAR HEMOGLOBIN 27.7 pg (28-32); MEAN CORPUSCULAR HGB CONC 30.5 g/dL (31-35); MONOCYTES # (AUTO) 0.7 (0.2-0.8); MONOCYTES % 8.4 % (4.4-11.3); NEUTROPHILS # (AUTO) 5.5 (2.1-6.9); NEUTROPHILS % 70.1 % (38.7-80.0); PLATELET COUNT 123 x10e3/uL (140-360); RED BLOOD COUNT 2.67 x10e6/uL (4.3-5.7); RED CELL DISTRIBUTION WIDTH 13.2 % (11.7-14.4)
[2019-07-27 06:04] LABS: ANION GAP 14.7 mmol/L (8-16); CALCIUM 7.6 mg/dL (8.4-10.2); CREATININE, SERUM 5.41 mg/dL (0.72-1.25); MAGNESIUM 2.1 MG/DL (1.3-2.1); POTASSIUM 3.7 mmol/L (3.5-5.1)
[2019-07-27] MEDS: FAMOTIDINE 20 MG TAB PO SCH ×2 (07:30→16:27)
[2019-07-27 08:00] VITALS: BP 143/89
--- NOTE | 2019-07-27 08:25 | NUR ---
PT SIGNED CHOICE FOR [facility], FAXED CLINICALS SIGNED CHOICE FOR [facility] FAXED CLINICALS, AND PER ORDER ISSUED A ROLLING WALKER AND OBTAINED SIGNATURES. FILED CHOICE IN CHART. SPOKE WITH PT ABOUT THE DIALYSIS ATTEMPTING TO GET HIM SET UP FOR WEDNESDAY, SINCE HIS BIOPSY TODAY WILL BLOCK HIS DIALYSIS AT THE UNIT TODAY. HE WAS SUPPOSED TO START AND GO T, AND SAT AT 1PM AT [facility] (APPROVAL WAS OBTAINED), LET KNOW HIS IS WANTING HIM MOVED CLOSER TO HOME AND WAITING N DIALYSIS DOC TO SEE IF HE GOES ANYWHERE ELSE BUT IT WILL DELAY THE DISCHARGE. HE STATES HE UNDERSTANDS.
--- NOTE | 2019-07-27 09:15 | NUR ---
RECEIVED CALL FROM RADIOLOGY REGARDING RENAL BX PER DEPT NOT TO BE DONE UNLESS HGB AT LEAST 8, SPOKE TO RECEIVED ORDER FOR ONE UNIT PT TO BE DIALYSED THIS DAY, SPOKE TO DIALYSIS NURSE REGARDING PATIENT NEED FOR ONE UNIT OF BLOOD AND DIALYSIS FIRST AT THIS TIME FOR PROCEDURE BOARDMARKER MADE AWARE. SPOKE TO RADIOLOGY DEPT REGARDING POC FOR PATIENT AGREED BIOPSY WOULD BE DONE THIS AFTERNOON IF HGB ABOVE 8. WILL MONITOR CLOSELY
[2019-07-27] MEDS: AMIODARONE HCL 200 MG TAB PO SCH (09:23)
[2019-07-27 09:52] LABS: INR 0.98; PROTHROMBIN TIME 13.2 seconds (11.9-14.5)
[2019-07-27] MEDS ORDERED: SODIUM CHLORIDE 0.9% 250ML 250 ML IV ONE (10:00)
[2019-07-27] MEDS: SALINE 0.65% NAS SOLN 1 SPRAY BTL SCH ×4 (10:25→20:50)
[2019-07-27] MEDS: FLUTICASONE PROPIONATE NASAL SPRAY NS SCH (10:25)
--- NOTE | 2019-07-27 10:54 | NUR ---
1040 PT HR WENT TO THE 30'S FOR THE THIRD TIME BP 157/94, PT REMAINS ASYMPTOMATIC EACH TIME THIS TIME PATIENT IS ON DIALYSIS. PAGED AT THIS TIME AWAITING CALL BACK. DIALYSIS NURSE TO NOTIFY WELL SINCE PT IS ON DIALYSIS AT THIS TIME 1053 SPOKE TO JANN DIAZ TRAVEL COUNSELOR [employer], STATES SHE WILL CALL BACK FOR ANY ORDERS TO GIVE WILL CONTINUE TO MONITOR CLOSELY 1056: SPOKE TO JANN RECEIVED ORDER TO STOP AMIODARONE A THIS TIME
[2019-07-27 11:30] VITALS: BP 163/90
[2019-07-27 11:36] VITALS: BP 163/90
[2019-07-27] MEDS ORDERED: AMIODARONE 900MG 500 ML IV ONE (13:09)
[2019-07-27] MEDS ORDERED: SODIUM CHLORIDE 0.9% 250ML 250 ML ONE (13:34)
--- NOTE | 2019-07-27 13:44 | Consultation ---
DATE OF CONSULTATION: 07/27/2019 Hospital Consultation HISTORY OF PRESENT ILLNESS: I was kindly asked to see this 53-year-old man for evaluation of right-sided hearing loss. 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 He reports a sudden onset of bilateral tinnitus and hearing loss, worse in his right ear after undergoing the ultrasound and biopsy of his kidney. He reports that in the last 24-48 hours hearing has improved, but reports he still has significant hearing loss in his right ear. He also reports that on admission he had "congestion" in his nose and sinuses, which he reports is also improved. Reviewed in detail in chart. PAST MEDICAL HISTORY: Reviewed in detail in chart. PAST SURGICAL HISTORY: Reviewed in detail in chart. PHYSICAL EXAMINATION: The right pinna was normal. Right external auditory canal was normal. Right tympanic membrane was minimally retracted and mobile. There was no postauricular pain, swelling or tenderness. The left pinna was normal. Left external auditory canal was normal. Left tympanic membrane was normal and mobile. There was no left postauricular pain swelling, erythema, or tenderness. Intranasal examination showed a mild S shaped nasal septal deviation. There was normal nasal mucosa. Oral cavity examination was noncontributory. There was no significant postnasal drainage. He had no palpable cervical adenopathy. ASSESSMENT: 1. Unclear etiology for the patient's reported sudden onset of tenderness and hearing loss. 2. Possible contribution from upper respiratory tract infection. PLAN: 1. Cornelia nasal spray two puffs each side of nose q.4 hours while awake. 2. Topical nasal steroids. 3. Outpatient evaluation and treatment with audiometric evaluation as soon as possible after discharge. Dano Cruz MD LROlga/MODL /[id number]
[2019-07-27] MEDS: AMIODARONE 900MG 500 ML IV SCH ×2 (13:45→19:45)
[2019-07-27 16:00] VITALS: BP 148/88
--- NOTE | 2019-07-27 16:26 | NUR ---
PT SIGNED CHOICE FOR [facility], FAXED CLINICALS TO [facility] AT [phone]. CALLED AND CANCELLED SNG. SET UP OXYGEN THROUGH [facility], HOME HEALTH THROUGH [facility] PROVID[facility]. ALL PENDING BIOPSY.
--- NOTE | 2019-07-27 16:39 | NUR ---
1224:PT BEING HEART RHYTHM CHANGED INTO AFIB IN THE 120-130S AND SUSTAINING AT THIS TIME , LAST BP 145/85 SPOKE TO JANN OAKES MACHINE OPERATOR WITH , STATES SHE WILL DISCUSS WITH MD AND NOTIFY OF ANY NEW ORDERS 1232: NEW MEDICATION ORDERS RECEIVED, PT TO START ON AMIODERONE DRIP PROTOCOL BUT NO BOLUS TO BE GIVEN AT THIS TIME. 1315 AMIODARONE STARTED AT THIS TIME 1345: BLOOD TRANSFUSION STARTED 1410 JANN OAKES MACHINE OPERATOR ROUNDING AT THIS TIME NOTIFIED THAT PATIENT AFIB WAS NOW CONTROLLED AND WAS GOING IN AND OUT OF AFIB PER OAKES MACHINE OPERATOR KEEP PATIENT ON AMIODARONE DRIP FOR NOW.
--- NOTE | 2019-07-27 16:51 | NUR ---
PROVIDED WALKER PER ORDER, OBTAINED ALL SIGNATURES AND WILL FILE IN PACU FOR BILLING.
[2019-07-27 20:00] VITALS: BP 145/87
[2019-07-27] MEDS: THIAMINE HCL INJ 100 MG/ML 2ML VIAL IV SCH (20:49)
[2019-07-28] VITALS (8 sets, daily range): BP systolic 123–151; BP diastolic 84–94
[2019-07-28] MEDS: ALBUTEROL/IPRATROPIUM 3 ML NEB NEB SCH ×4 (01:00→19:00)
[2019-07-28 05:09] LABS: BASOPHILS # (AUTO) 0.1 (0.0-0.1); BASOPHILS % 0.8 % (0.0-1.0); EOSINOPHILS # (AUTO) 0.4 (0.0-0.4); EOSINOPHILS % 4.3 % (0.0-6.0); HEMATOCRIT 27.4 % (38.2-49.6); HEMOGLOBIN 8.3 g/dL (14.0-18.0); LYMPHOCYTES # (AUTO) 1.4 (1.0-3.2); LYMPHOCYTES % 15.8 % (18.0-39.1); MEAN CORPUSCULAR HEMOGLOBIN 28.2 pg (28-32); MEAN CORPUSCULAR HGB CONC 30.3 g/dL (31-35); MEAN CORPUSCULAR VOLUME 93.2 fL (81-99); MONOCYTES # (AUTO) 0.7 (0.2-0.8); MONOCYTES % 8.3 % (4.4-11.3); NEUTROPHILS % 70.3 % (38.7-80.0); PLATELET COUNT 112 x10e3/uL (140-360); RED BLOOD COUNT 2.94 x10e6/uL (4.3-5.7); RED CELL DISTRIBUTION WIDTH 13.5 % (11.7-14.4)
[2019-07-28 05:31] LABS: ANION GAP 15.2 mmol/L (8-16); CALCIUM 7.7 mg/dL (8.4-10.2); CREATININE, SERUM 4.78 mg/dL (0.72-1.25); POTASSIUM 4.2 mmol/L (3.5-5.1)
[2019-07-28] MEDS: SALINE 0.65% NAS SOLN 1 SPRAY BTL SCH ×5 (06:08→19:58)
[2019-07-28] MEDS: FAMOTIDINE 20 MG TAB PO SCH ×2 (07:09→17:33)
[2019-07-28] MEDS: FLUTICASONE PROPIONATE NASAL SPRAY NS SCH (08:44)
[2019-07-28] MEDS ORDERED: AMIODARONE HCL 200 MG TAB PO SCH (09:00)
[2019-07-28] MEDS ORDERED: AMIODARONE 900MG 500 ML IV SCH ×2 (09:45→10:15)
--- NOTE | 2019-07-28 10:33 | NUR ---
PROVIDED LETTER TO SNG PER DR KUNZ. STATES PT IS READY TO GO SO WILL CONTINUE WITH SNG AND IF HE GETS APPROVED THROUGH THE OTHER COMPANIES AND WANTS TO CHANGE THEY WILL TRANSFER AT LATER TIME. PT TO DISCHARGE ON WEDNESDAY AFTER DIALYSIS AND BEGIN AT SN AT 1PM, COPY OF DIALYSIS ACCEPTANCE PUT IN CHART WITH 4 COPIES GIVEN TO PATIENT.
[2019-07-28] MEDS ORDERED: MIDAZOLAM HCL 2 MG/2 ML VIAL ONE (13:19)
[2019-07-28] MEDS ORDERED: FENTANYL CITRATE/PF 100MCG/2 ML INJ ONE (13:19)
[2019-07-28] MEDS: AMIODARONE HCL 200 MG TAB PO SCH (17:33)
[2019-07-28] MEDS: THIAMINE HCL INJ 100 MG/ML 2ML VIAL IV SCH (19:58)
[2019-07-29 00:05] VITALS: BP 140/97
[2019-07-29] MEDS: ALBUTEROL/IPRATROPIUM 3 ML NEB NEB SCH ×2 (01:00→07:00)
--- NOTE | 2019-07-29 01:02 | Progress Note ---
DATE: 07/27/2019 SUBJECTIVE: The patient is same, normal changes, evaluated by ENT. He is going to have a biopsy tomorrow. MEDICATIONS: Per EMR. OBJECTIVE: VITAL SIGNS: Temperature 98, respiratory rate 16, pulse rate 80, blood pressure 121/66. HEAD AND NECK: Neck is supple. No bruits. LUNGS: Good air entry. ABDOMEN: Soft. EXTREMITIES: Good pulses. NEUROLOGIC: Alert. Follows commands. Normal mental status examination. No tremors. No myoclonus. Difficult to reveal on the right. No lateralized weakness. Ambulating. Deep tendon reflexes are 2. Plantars are flexor. ASSESSMENT: 1. Resolved encephalopathy. 2. Resolved myoclonic jerking. 3. Symptoms are metabolic, will be related to renal failure. PLAN: The patient will follow up with ENT regarding his hearing loss. Most of medical management per the primary team. Fern Perez MD AM/SAM /[id number]
--- NOTE | 2019-07-29 01:27 | Progress Note ---
DATE: 07/28/2019 SUBJECTIVE: The patient had biopsies today, healing issues persist. Neurologic, otherwise he is awake and alert. No tremors. MEDICATIONS: Per AUG. OBJECTIVE: VITAL SIGNS: Temperature 98, respiratory rate 16, pulse rate 80, and blood pressure 126/60. HEAD AND NECK: No meningeal signs. LUNGS: Good air entry. ABDOMEN: Soft. NEUROLOGIC: Alert, follows commands. No lateralizing weakness. No tremors. No weight loss. ASSESSMENT: 1. Resolved encephalopathy and myoclonic jerking secondary to metabolic abnormalities. Mild renal failure. 2. Right ear hearing loss. No new neurologic recommendations. Fern Perez MD AM/MODL /[id number]
[2019-07-29 04:27] VITALS: BP 139/74
[2019-07-29 05:17] LABS: BASOPHILS # (AUTO) 0.1 (0.0-0.1); BASOPHILS % 0.6 % (0.0-1.0); EOSINOPHILS # (AUTO) 0.4 (0.0-0.4); HEMATOCRIT 26.6 % (38.2-49.6); LYMPHOCYTES % 11.5 % (18.0-39.1); MEAN CORPUSCULAR HEMOGLOBIN 28.1 pg (28-32); MEAN CORPUSCULAR HGB CONC 30.1 g/dL (31-35); MEAN CORPUSCULAR VOLUME 93.3 fL (81-99); MONOCYTES # (AUTO) 0.9 (0.2-0.8); MONOCYTES % 9.8 % (4.4-11.3); NEUTROPHILS # (AUTO) 6.5 (2.1-6.9); NEUTROPHILS % 73.6 % (38.7-80.0); PLATELET COUNT 111 x10e3/uL (140-360); RED BLOOD COUNT 2.85 x10e6/uL (4.3-5.7); RED CELL DISTRIBUTION WIDTH 13.3 % (11.7-14.4)
[2019-07-29] MEDS: SALINE 0.65% NAS SOLN 1 SPRAY BTL SCH ×3 (05:32→13:12)
[2019-07-29 05:55] LABS: ANION GAP 17.1 mmol/L (8-16); CALCIUM 7.6 mg/dL (8.4-10.2); CREATININE, SERUM 6.17 mg/dL (0.72-1.25); POTASSIUM 4.1 mmol/L (3.5-5.1)
[2019-07-29 07:00] VITALS: BP 121/90
[2019-07-29] MEDS: FAMOTIDINE 20 MG TAB PO SCH (08:06)
[2019-07-29] MEDS: FLUTICASONE PROPIONATE NASAL SPRAY NS SCH (08:06)
[2019-07-29] MEDS: AMIODARONE HCL 200 MG TAB PO SCH (08:09)
[2019-07-29 08:59] VITALS: BP 121/90
[2019-07-29 11:00] VITALS: BP 114/67
[2019-07-29] MEDS ORDERED: HEPARIN SOD (PORCINE) 1000 UNIT/ML SDV IV PRN (11:00)
[2019-07-29] MEDS ORDERED: AMIODARONE HCL200 MG PO (13:13)
[2019-07-29] MEDS ORDERED: Fluticasone Propionate NS (13:32)
[2019-07-29] MEDS ORDERED: ELIQUIS2.5 MG PO (13:32)
[2019-07-29 15:00] VITALS: BP 154/95
--- NOTE | 2019-07-29 15:38 | NUR ---
pt to be discharged. he verbalizes understanding of his follow up appointments. verbalizes understanding of dyalisis catheter. states has appt for wednesday for dyalisis. vss and recorded. at bedside. they verbalize understanding of discharge instructions. afib, renal failure and renal diet written information provided. they verbalize understanding.
--- NOTE | 2019-07-30 03:22 | Discharge Summary ---
CONSULTING PHYSICIANS: 1. Cecilia Thomas MD, pastry artist. 2. Fern Perez MD, neurologist. 3. Yasmani Davis MD, python java developer. 4. Dano Cruz MD, ENT. PRIMARY CARE PHYSICIAN: Dr. De La Cruz CHIEF COMPLAINT: Fatigue, acute diastolic heart failure. ALLERGIES: NO KNOWN DRUG ALLERGIES. HOSPITAL COURSE: Mr. Pantera Tiwari is a 53-year-old male with primary history of hypertension, COPD, hyperlipidemia, who got admitted complaining of worsening shortness of breath and lower extremity edema. The patient also reported having a fall one and a half month ago and started having lower extremity swelling associated with dyspnea upon exertion. While in the hospital, the patient got evaluated by python java developer and pastry artist. His lab on arrival showed BUN of 120, creatinine of 12.3, potassium of 6.2, sodium of 142, chloride 109, CO2 of 12, and anion gap of 27. The patient had a hemodialysis catheter placed and he is receiving hemodialysis. During the hospital course, the patient also had an episode of atrial fibrillation where he has been placed on amiodarone and Eliquis. Case Management arranged outpatient hemodialysis. Discharge planning for today after hemodialysis. MEDICATIONS: Amiodarone 200 p.o. b.i.d., Eliquis 2.5 mg p.o. b.i.d., Flonase one spray daily for 7 days. PHYSICAL EXAMINATION: VITAL SIGNS: Temperature 98.1, pulse 65, blood pressure 114/67, respiratory rate 18, oxygen saturation 100%. GENERAL: The patient is alert and oriented x3. Hard of hearing. Neck: Supple. CARDIOVASCULAR: Normal sinus rhythm. LUNGS: Clear bilateral. HEENT: Sclerae nonicteric. ABDOMEN: Soft, nontender. EXTREMITIES: No edema. NEUROLOGICAL: Nonfocal. LABORATORY DATA: From 07/29/2019, WBC 8.78, hemoglobin 8, hematocrit 26.6, platelets 111. Sodium 138, potassium 4.1, chloride 101, CO2 of 24, BUN 29, creatinine 6.17, glucose 89. DIAGNOSES: 1. End-stage renal disease, on hemodialysis. 2. Paroxysmal atrial fibrillation. 3. Hypertension. 4. Hyperlipidemia. 5. Diastolic congestive heart failure with ejection fraction of 55%. FOLLOWUP: 1. The patient is advised to follow up with Nephrology in 1 week. 2. Follow up with primary care physician in 1-2 weeks. 3. Follow up with python java developer in 1-2 weeks. Dictated by Marilyn Pulido NP MD CODIE Martinez/SAM /[id number]
--- NOTE | 2019-07-30 22:50 | Progress Note ---
DATE: 07/29/2019 SUBJECTIVE: The patient is going home today. Normal changes. No tremors. Oriented. MEDICATIONS: Per medication list. OBJECTIVE: VITAL SIGNS: Afebrile. Vital signs stable. LUNGS: Good air entry. ABDOMEN: Soft. NEUROLOGIC: Alert. Follows commands. No tremors. No ataxia. ASSESSMENT: 1. Resolved encephalopathy and myoclonic jerking secondary to metabolic abnormalities. 2. Right hearing loss. PLAN: The patient will follow up with ENT regarding his hearing loss and no other neurologic recommendations. Fern Perez MD AM/MODL /[id number]
--- NOTE | 2019-08-11 14:20 | Diagnostic Imaging Report ---
Ultrasound guided kidney biopsy, 07/28/2019. Pre-procedure diagnosis: Renal failure Post-procedure diagnosis: Same Radiologist: Monroe Huerta MD Mail Carrier And Clerk: None Sedation: Moderate sedation was administered. 1 mg of Versed and 50 mcg fentanyl IV was used for moderate sedation monitored under my direction. Total intraservice time of the sedation was 30 minutes. The patient's vital signs were monitored throughout the procedure and recorded in the patient's medical record by the nurse. Anesthesia: 1% Xylocaine local anesthesia. Technique/Specimen removed: After informed consent was obtained, the access site was prepped and draped with the standard maximal sterile barrier technique. The skin was anesthetized with 1% lidocaine. Left lower pole was selected for biopsy using ultrasound guidance. 18-gauge Temno core biopsy needle was advanced into the left renal lower pole cortex with ultrasound guidance using a craniocaudal approach. 4 samples were obtained and given to pathology for adequacy check. Postbiopsy scan demonstrates no evidence of hematoma or active bleeding. Complication: None. Estimated Blood Loss: Less than 2 cc. Graft/Implants: None Impression: Successful ultrasound-guided renal core biopsy with conscious sedation. Signed by: Monroe Huerta on 07/28/2019 4:25 PM
== END 2019-07-29 15:43 | disposition home or self-care (01) | DRG 291 ==
LOC: MED/SURG3 13:33 → PREOBSVTOIN 13:33 → IMCU 07-24 23:34
PROVIDERS: ADMIT Internal Medicine; ATTEND Internal Medicine
PROC: 0JH63XZ Insertion of Tunneled Vascular Access Device into Chest Subcutaneous Tissue and Fascia, Percutaneous Approach (ICD-10-PCS; principal; 2019-07-21)
PROC: 06H033Z Insertion of Infusion Device into Inferior Vena Cava, Percutaneous Approach (ICD-10-PCS; 2019-07-21)
PROC: B5191ZA Fluoroscopy of Inferior Vena Cava using Low Osmolar Contrast, Guidance (ICD-10-PCS; 2019-07-21)
PROC: 5A1D70Z Performance of Urinary Filtration, Intermittent, Less than 6 Hours Per Day (ICD-10-PCS; 2019-07-21)
PROC: 5A1D70Z Performance of Urinary Filtration, Intermittent, Less than 6 Hours Per Day (ICD-10-PCS; 2019-07-22)
PROC: 5A1D70Z Performance of Urinary Filtration, Intermittent, Less than 6 Hours Per Day (ICD-10-PCS; 2019-07-24)
PROC: 5A1D70Z Performance of Urinary Filtration, Intermittent, Less than 6 Hours Per Day (ICD-10-PCS; 2019-07-27)
PROC: 5A1D70Z Performance of Urinary Filtration, Intermittent, Less than 6 Hours Per Day (ICD-10-PCS; 2019-07-29)
DX: I13.2 Hypertensive heart and chronic kidney disease with heart failure and with stage 5 chronic kidney disease, or end stage renal disease (principal); N18.6 End stage renal disease; G93.41 Metabolic encephalopathy; I50.33 Acute on chronic diastolic (congestive) heart failure; J96.01 Acute respiratory failure with hypoxia; E87.2 Acidosis; N17.9 Acute kidney failure, unspecified; N04.9 Nephrotic syndrome with unspecified morphologic changes; R00.1 Bradycardia, unspecified; I95.9 Hypotension, unspecified; E78.5 Hyperlipidemia, unspecified; Z82.49 Family history of ischemic heart disease and other diseases of the circulatory system; Z82.5 Family history of asthma and other chronic lower respiratory diseases; E87.5 Hyperkalemia; J44.9 Chronic obstructive pulmonary disease, unspecified; Z82.3 Family history of stroke; G31.84 Mild cognitive impairment of uncertain or unknown etiology; H93.13 Tinnitus, bilateral; H91.8X1 Other specified hearing loss, right ear; I48.0 Paroxysmal atrial fibrillation; F10.10 Alcohol abuse, uncomplicated; F17.210 Nicotine dependence, cigarettes, uncomplicated
CPT/HCPCS: 36415; 36558; 36600; 50200; 70450; 70551; 71046; 74470; 76770; 76937; 76942; 77001; 80048; 80053; 80061; 81001; 82140; 82607; 82728; 82805; 83036; 83520; 83540; 83735; 83880; 84100; 84165; 84425; 84443; 84466; 85025; 85610; 85730; 86021; 86160; 86431; 86592; 86704; 86706; 86803; 86850; 86900; 86920; 87340; 87390; 90962; 93005; 93041; 94640; 99152; C1769; C1892; G0433; G0435; J0610; J1644; J1940; J2001; J2150; J2250; J3010; J3411; J7030; J7050; J7799; P9016

== ENCOUNTER → 2019-11-11 | Outpatient (CLI) | payer BC, OTHER ==
[~2019-11-11] MED LIST: AMIODARONE HCL200 MG PO; ATENOLOL50 MG PO; ELIQUIS2.5 MG PO; Fluticasone Propionate NS; HYDROCHLOROTH12.5 MG PO; LISINOPRIL10 MG PO; LOSARTAN POTASS25 MG PO; MONTELUKAST SOD10 MG PO; SIMVASTATIN20 MG PO
== END ==
LOC: DX 13:35 → EDSTATUS 11-16 09:00
PROVIDERS: ATTEND Internal Medicine Gastroenterology
DX: Z01.818 Encounter for other preprocedural examination (principal); Z12.11 Encounter for screening for malignant neoplasm of colon; R10.9 Unspecified abdominal pain; K62.5 Hemorrhage of anus and rectum; D64.9 Anemia, unspecified; Z11.59 Encounter for screening for other viral diseases
CPT/HCPCS: 87635; 93005

== ENCOUNTER → 2020-03-21 | Day surgery (SDC) | payer BC, MEDICARE, OTHER ==
[~2020-03-21] MED LIST changes: +ALBUTEROL0.63 MG/3 INH; +BREO ELLIPTA 11 EACH INH; +FENTANYL CITRATE/PF 100MCG/2 ML INJ ONE; +LIDOCAINE HCL 2% LOCAL INJ 5 ML SDV VIAL INJ ONE; +MIDAZOLAM HCL 2 MG/2 ML VIAL ONE; +PROPOFOL IV EMULSION 10 MG/ML 20 ML VIAL ONE; +ZOFRAN8 MG PO
[2020-03-21 08:02] LABS: BASOPHILS # (AUTO) 0.1 (0.0-0.1); EOSINOPHILS # (AUTO) 0.1 (0.0-0.4); EOSINOPHILS % 1.8 % (0.0-6.0); HEMATOCRIT 28.7 % (38.2-49.6); HEMOGLOBIN 8.1 g/dL (14.0-18.0); LYMPHOCYTES # (AUTO) 1.2 (1.0-3.2); LYMPHOCYTES % 20.1 % (18.0-39.1); MEAN CORPUSCULAR HEMOGLOBIN 25.2 pg (28-32); MEAN CORPUSCULAR HGB CONC 28.2 g/dL (31-35); MEAN CORPUSCULAR VOLUME 89.4 fL (81-99); MONOCYTES # (AUTO) 0.5 (0.2-0.8); NEUTROPHILS # (AUTO) 4.2 (2.1-6.9); NEUTROPHILS % 68.8 % (38.7-80.0); PLATELET COUNT 164 x10e3/uL (140-360); RED BLOOD COUNT 3.21 x10e6/uL (4.3-5.7)
[2020-03-21 08:20] LABS: ANION GAP 17.8 mmol/L (8-16); CALCIUM 9.4 mg/dL (8.4-10.2); CREATININE, SERUM 6.04 mg/dL (0.72-1.25); POTASSIUM 3.8 mmol/L (3.5-5.1)
[2020-03-21 08:59] LABS: PROTHROMBIN TIME 13.7 seconds (11.9-14.5)
[2020-03-21 11:14] VITALS: BP 132/70
[2020-03-21 11:51] LABS: WBC,FECAL (FECAL LACTOFERRIN) NEGATIVE (NEGATIVE)
[2020-03-21 15:49] LABS: C DIFFICILE TOXIN A&B AMP PROB **POSITIVE** (NEGATIVE)
== END | disposition home or self-care (01) ==
LOC: OR 06:56
PROVIDERS: ATTEND Internal Medicine Gastroenterology
DX: K29.50 Unspecified chronic gastritis without bleeding (principal); D12.2 Benign neoplasm of ascending colon; K62.1 Rectal polyp; K31.7 Polyp of stomach and duodenum; K22.70 Barrett's esophagus without dysplasia; K44.9 Diaphragmatic hernia without obstruction or gangrene; K59.00 Constipation, unspecified; K57.30 Diverticulosis of large intestine without perforation or abscess without bleeding; K64.8 Other hemorrhoids; N18.6 End stage renal disease; G47.33 Obstructive sleep apnea (adult) (pediatric); J44.9 Chronic obstructive pulmonary disease, unspecified; I48.91 Unspecified atrial fibrillation; I13.2 Hypertensive heart and chronic kidney disease with heart failure and with stage 5 chronic kidney disease, or end stage renal disease; I50.9 Heart failure, unspecified; E78.5 Hyperlipidemia, unspecified; Z01.812 Encounter for preprocedural laboratory examination; Z11.59 Encounter for screening for other viral diseases; Z79.84 Long term (current) use of oral hypoglycemic drugs; Z87.891 Personal history of nicotine dependence; Z86.19 Personal history of other infectious and parasitic diseases
CPT/HCPCS: 36415; 43239; 45381; 45384; 45385; 80048; 83630; 83993; 85025; 85610; 85730; 87045; 87177; 87328; 87493; J2001; J2250; J2704; J3010; U0002; 45378